=== PATIENT | female | born 1980 | race Caucasian/White ===

== ENCOUNTER 2020-02-01 22:48 | Emergency (ER) | payer MEDICARE, MEDICAID, SELFPAY ==
--- NOTE | ~2020-02-01 | XR_ITS ---
EXAMINATION: XR ankle RT min 3V, XR foot RT min 3V, XR tibia fibula RT 2V DATE: 02/01/2020 23:20 INDICATION: Pain at the right foot and distal right lower leg post fall TECHNIQUE: 1. Anteroposterior and lateral views of the right tibia and fibula were obtained. 2. Anteroposterior, mortise, additional oblique and lateral view of the right ankle were obtained. 3. Dorsoplantar, two oblique and lateral views of the right foot were obtained. COMPARISON: Right ankle radiographs dated 08/30/2017 FINDINGS: Normal alignment at the right knee, ankle and foot. Unchanged corticated heterotopic ossicle at the t ip of the medial malleolus likely sequela of prior deltoid ligament sprain. Right second-fifth claw t oes with partial cross over the second and third toes. There are nondisplaced fractures at the necks of the second, third and fourth metatarsals with mild lateral angulation. No other fractures identifi ed. Joint spaces are relatively preserved throughout. Large right ankle joint effusion with increased density anterior to the tibiotalar joint line. Bone island at the anterior process of the calcaneus. Soft tissue swelling about the lateral malleolus and lateral hindfoot. IMPRESSION: 1. Mild lateral angulation of nondisplaced fractures at the necks of the right second, third and four th metatarsals. 2. Lateral sided soft tissue swelling and large effusion but no fracture at the right ankle. Reviewed, dictated and finalized at location A. IMPRESSION: 1. Mild lateral angulation of nondisplaced fractures at the necks of the right second, third and fourth metatarsals. 2. Lateral sided soft tissue swelling and large effusion but no fracture at the right ankle. IMPRESSION: 1. Mild lateral angulation of nondisplaced fractures at the necks of the right second, third and fourth metatarsals. 2. Lateral sided soft tissue swelling and large effusion but no fracture at the right ankle.
[2020-02-01 22:48] VITALS: BP 114/96; PULSE 75; RESP 20; TEMP 36.9; O2SAT 98
--- NOTE | 2020-02-01 23:21 | ED.LOWEXIN ---
HPI - Extremity Injury (Lower) General Chief Complaint: Extremity Injury, Lower Stated Complaint: FOOT PAIN Time Seen by Provider: 02/01/20 22:52 Source: RN notes reviewed History of Present Illness HPI Narrative: Patient presents emergency department from home for right ankle pain. Patient states prior to arrival she was walking her backyard when she stepped in the mall held in causing her to twist her right ankle and fell to the ground. Patient notes pain in the right lateral ankle going down to the right foot and up the right midline. Patient denies any other trauma or injury from the fall. Denies any numbness or tingling or any other symptoms Related Data Home Medications Medication Instructions Recorded Confirmed citalopram 40 mg PO DAILY 02/01/20 02/01/20 diclofenac sodium 75 mg PO BID 02/01/20 02/01/20 risperidone 0.5 mg PO HS 02/01/20 02/01/20 Allergies Allergy/AdvReac Type Severity Reaction Status Date / Time Sulfa (Sulfonamide Allergy Mild Unknown Verified 02/01/20 22:57 Antibiotics) codeine Allergy Unknown Unknown Verified 02/01/20 22:57 Review of Systems Review of Systems: Narrative: Gen.: Denies fevers or chills Musculoskeletal: See HPI Neuro: Denies numbness, tingling, weakness Skin: Denies rash Endo: Denies DM PMFSH Past Medical History Medical History Degenerative joint disease (DJD) of hip Right hip pain Trochanteric bursitis, right hip Vision abnormalities Social History Social History Smoking status: Current every day smoker Second hand tobacco smoke exposure: No Alcohol intake: current Gender identity (if verbalized by the patient): Female Exam Narrative: Exam Narrative: APPEARANCE: No acute distress, nontoxic, resting in bed Eyes: EOMI HEENT: Normocephalic, atraumatic, RESPIRATORY: No respiratory distress MUSCULOSKELETAl: Tender palpation over the right lateral malleolus with mild swelling no ecchymosis, tender over the base of the fifth metatarsal as well as the dorsal foot and the proximal fibula dorsalis pedis pulse 2+, neurovascular intact, no tenderness over the medial malleolus NEURO: Awake and alert. Following commands, speech normal, no focal deficits SKIN:: Warm, dry. Normal Color no rash or lesions Course Course Emergency Course: Discussed with patient results of workup and diagnosis. Discussed need for follow-up with primary care, proper use of medication, and reasons to return to the emergency department. Patient understands and agrees to current treatment plan Vital Signs Vital signs: Vital Signs Temperature 98.5 F 02/01/20 22:48 Pulse Rate 75 02/01/20 22:48 Respiratory Rate 20 02/01/20 22:48 Blood Pressure 114/96 H 02/01/20 22:48 Pulse Oximetry 98 02/01/20 22:48 Temperature 98.5 F 02/01/20 22:48 Pulse Rate 75 02/01/20 22:48 Respiratory Rate 20 02/01/20 22:48 Blood Pressure 114/96 H 02/01/20 22:48 Pulse Oximetry 98 02/01/20 22:48 Procedures Orthopedic Splinting/Casting Injury #1: Lower Extremity Injury Location: foot Lower Extremity Immobilizer: posterior splint Splint: customized in ED OCL: short leg Pre-Procedure Neuro Vascular Exam: normal Post-Procedure Neuro Vascular Exam: normal MDM - Extremity Injury (Lower) Imaging Data Radiologist's impression: ITS Impressions Ankle X-Ray 02/01/20 23:23 IMPRESSION: 1. Mild lateral angulation of nondisplaced fractures at the necks of the right second, third and fourth metatarsals. 2. Lateral sided soft tissue swelling and large effusion but no fracture at the right ankle. Foot X-Ray 02/01/20 23:23
[2020-02-01] MEDS: ACETAMINOPHEN 500 MG TABLET 1000 MG PO (23:55)
[2020-02-02 00:33] VITALS: BP 135/77; PULSE 70; RESP 16; O2SAT 98
== END 2020-02-02 00:34 | disposition home or self-care (01) ==
PROVIDERS: Emergency Provider Emergency Medicine; PCP Family Medicine
DX: S92.324A Nondisplaced fracture of second metatarsal bone, right foot, initial encounter for closed fracture (principal); S92.334A Nondisplaced fracture of third metatarsal bone, right foot, initial encounter for closed fracture; S92.344A Nondisplaced fracture of fourth metatarsal bone, right foot, initial encounter for closed fracture; M16.10 Unilateral primary osteoarthritis, unspecified hip; F17.200 Nicotine dependence, unspecified, uncomplicated; W18.39XA Other fall on same level, initial encounter
CPT/HCPCS: 29515; 73590; 73610; 73630; 99284; A9270

== ENCOUNTER 2020-02-05 08:21 | Emergency (ER) | payer MEDICARE, MEDICAID, SELFPAY ==
[2020-02-05 08:35] VITALS: BP 121/79; PULSE 78; RESP 12; TEMP 37.1; O2SAT 99
--- NOTE | 2020-02-05 08:35 | ED.LOWEXIN ---
HPI - Extremity Injury (Lower) General Chief Complaint: Extremity Injury, Lower Stated Complaint: bruising to toes Time Seen by Provider: 02/05/20 08:28 History of Present Illness HPI Narrative: She was seen here for right metatarsal fractures on 01/31. She had a splint placed at that time and she has follow-up schudlked tomorrow with ortho. She returns today because she is concerned that her toes are changing colors. No numbness, wound, toe pain. Related Data Home Medications Medication Instructions Recorded Confirmed citalopram 40 mg PO DAILY 02/01/20 02/01/20 diclofenac sodium 75 mg PO BID 02/01/20 02/01/20 risperidone 0.5 mg PO HS 02/01/20 02/01/20 alprazolam 0.5 mg PO DAILY PRN 02/05/20 Allergies Allergy/AdvReac Type Severity Reaction Status Date / Time Sulfa (Sulfonamide Allergy Mild Unknown Verified 02/01/20 22:57 Antibiotics) codeine Allergy Unknown Unknown Verified 02/01/20 22:57 Review of Systems Review of Systems: All systems reviewed & are unremarkable except as noted in HPI and below PMFSH Past Medical History Medical History Degenerative joint disease (DJD) of hip Right hip pain Trochanteric bursitis, right hip Vision abnormalities Family History Family History Mother Hypertension Father Family history of liver disease Other Diabetes mellitus Family history of arthritis Family history of malignant neoplasm Social History Social History Smoking status: Current every day smoker Second hand tobacco smoke exposure: No Alcohol intake: current Gender identity (if verbalized by the patient): Female Exam Const: General: healthy appearing, no acute distress and alert Orientation/consciousness: patient oriented x3 HENMT: Head: normal to inspection Resp: Effort & Inspection: normal respiratory effort Cardio: Other: Brisk capillary refill in all toes on right Skin: Other: Bruising to toes on the right Neuro: Other: Distal motor and sensory intact Course Vital Signs Vital signs: Vital Signs Temperature 37.1 C 02/05/20 08:35 Pulse Rate 78 02/05/20 08:35 Respiratory Rate 12 02/05/20 08:35 Blood Pressure 121/79 02/05/20 08:35 Pulse Oximetry 99 02/05/20 08:35 Temperature 37.1 C 02/05/20 08:35 Pulse Rate 72 02/05/20 09:26 Respiratory Rate 14 02/05/20 09:26 Blood Pressure 121/79 02/05/20 08:35 Pulse Oximetry 99 02/05/20 09:26 Discharge Plan Discharge Clinical Impression: Contusion of foot, right Qualifiers: Encounter type: initial encounter Qualified Code(s): S90.31XA - Contusion of right foot, initial encounter Metatarsal fracture Qualifiers: Encounter type: subsequent encounter Patient Disposition: Home, Self-Care Condition: Stable Instructions: Foot Contusion (ED) Prescriptions: No Action alprazolam 0.5 mg tablet 0.5 mg PO DAILY PRN (Reason: Anxiety) RF: 0 citalopram 40 mg Tablet 40 mg PO DAILY RF: 0 diclofenac sodium 75 mg tablet,delayed release (DR/EC) 75 mg PO BID RF: 0 risperidone 0.5 mg tablet 0.5 mg PO HS RF: 0 hydrocodone-acetaminophen 5-325 mg tablet 1 tablet PO Q4H PRN (Reason: pain) Qty: 8 RF: 0 Follow-up/Referrals: Denis,Coty Brown MD [Primary Care Provider] - Discharge Date/Time: 02/05/20 09:27
[2020-02-05 09:26] VITALS: PULSE 72; RESP 14; O2SAT 99
== END 2020-02-05 09:27 | disposition home or self-care (01) ==
PROVIDERS: Emergency Provider Emergency Medicine; PCP Family Medicine
DX: S90.31XA Contusion of right foot, initial encounter (principal); S92.301A Fracture of unspecified metatarsal bone(s), right foot, initial encounter for closed fracture; M16.10 Unilateral primary osteoarthritis, unspecified hip; X58.XXXA Exposure to other specified factors, initial encounter
CPT/HCPCS: 99282

== ENCOUNTER 2020-07-05 09:00 | Outpatient (RCR) | payer MEDICARE, MEDICAID, SELFPAY ==
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
--- NOTE | 2020-06-04 15:57 | PCPTNOTE ---
Patient called after her appointment time to cancelled scheduled appointment this date due to transportation.
--- NOTE | 2020-06-17 12:49 | PCPTNOTE ---
Patient called & cancelled scheduled appointment this date due to not being able to make it.
--- NOTE | 2020-06-26 12:43 | PCPTNOTE ---
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
[2020-07-01 12:37] VITALS: BP_SYST 180
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
--- NOTE | 2020-07-09 09:01 | PCPTNOTE ---
Patient did not show up for scheduled appointment this date; when called for reminder on next appointment patient answered stating she over slept will be there Wednesday.
--- NOTE | 2020-07-12 13:47 | PCPTNOTE ---
Patient did not show up for scheduled appointment this date. Unable to leave message when she was called due to no VM set-up.
--- NOTE | 2020-07-16 14:40 | PCPTNOTE ---
Patient did not show up for scheduled appointment this date. Called and spoke to patient, she stated she forgot and was very sorry. I explained to her that since this was her 3 no show, we will have to discharge at this time.
--- NOTE | 2020-07-17 11:07 | PCPTNOTE ---
Admitting Provider: Attending Provider: Evan Mora MD Patient:Shayy Wren Date of :1980 Discharge Note Patient has not returned for any further treatments since 07/05/2020, therefore she will be discharged at this time. Patient?s initial visit was on 05/28/2020 14:45 and she had a total of 6 visits with 4 cancelled or no show visits. She has not received therapy since her last therapy update performed. No change in functional status or progress towards goals since 06/04/20. She has been instructed in a HEP to perform to maintain her level of function. The goals have been partially met. Dc skilled therapy services at this time due to poor compliance with attending therapy visits. Thank you for referring this patient to [facility]. Please review, sign, date and return this discharge summary CARYN. I have been updated about the patient's current status and I agree with discharge from the above service at this time. Referring Physician Date
== END 2020-07-18 09:30 | disposition home or self-care (01) ==
LOC: ANHPT 09:00
PROVIDERS: PCP Family Medicine; Referring Provider Orthopaedic Surgery; Visit Provider Orthopaedic Surgery
DX: M75.42 Impingement syndrome of left shoulder (principal)
CPT/HCPCS: 97110; 97140; 97162; 97163

== ENCOUNTER 2021-03-22 10:03 | Emergency (ER) | payer MEDICARE, MEDICAID, SELFPAY | END 2021-03-22 10:15 | disposition left against medical advice (07) | LOC: EXPCOLL 10:08 | PROVIDERS: Emergency Provider Registered Nurse; PCP Family Medicine | DX: Z53.21 Procedure and treatment not carried out due to patient leaving prior to being seen by health care provider (principal) | CPT/HCPCS: 99199 ==

== ENCOUNTER 2021-03-22 10:12 | Emergency (ER) | payer MEDICARE, MEDICAID, SELFPAY ==
--- NOTE | ~2021-03-22 | XR_ITS ---
XR ankle LT min 3V DATE: 03/22/2021 10:31 INDICATION: Pain and swelling of lateral left ankle: Twisting injury last evening. TECHNIQUE: 5 views COMPARISON: None FINDINGS: There is mild lateral soft tissue swelling of the ankle. No fracture or dislocation of the ankle or disruption of the ankle mortise is detected. Mild osteoart hritis of the tibiotalar joint. Slight plantar calcaneal enthesopathy. IMPRESSION: Mild lateral soft tissue swelling; no fracture or dislocation Reviewed, dictated and finalized at location A.
[2021-03-22 10:18] VITALS: BP 134/75; PULSE 71; RESP 20; TEMP 36.8; O2SAT 99
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
== END 2021-03-22 10:53 | disposition home or self-care (01) ==
PROVIDERS: Emergency Provider Registered Nurse; PCP Family Medicine
DX: S93.402A Sprain of unspecified ligament of left ankle, initial encounter (principal); S96.912A Strain of unspecified muscle and tendon at ankle and foot level, left foot, initial encounter; W22.8XXA Striking against or struck by other objects, initial encounter; M16.10 Unilateral primary osteoarthritis, unspecified hip; F17.200 Nicotine dependence, unspecified, uncomplicated
CPT/HCPCS: 73610; 99213; G0463

== ENCOUNTER 2021-04-01 10:14 | Outpatient (CLI) | payer MEDICARE, MEDICAID, SELFPAY ==
--- NOTE | 2021-04-01 12:00 | NEURO_ITS ---
Impression: # Complains of right upper extremity pain. # Subtle evolving right Carpal Tunnel Syndrome. # No ulnar neuropathy. # Normal needle/EMG exam. # Clinical correlation recommended. Nerve Conduction Studies Anti Sensory Summary Table Stim Site NR Peak (ms) P-T Amp (?V) Site1 Site2 Delta-P (ms) Dist (cm) Kade (m/s) Right Median Anti Sensory (2-3nd Digit) Wrist 3.4 34.9 Wrist 2-3nd Digit 3.4 14.0 41 Wrist 3.4 31.5 Wrist 2-3nd Digit 3.4 14.0 41 Right Radial Anti Sensory (Base 1st Digit) Wrist 1.8 19.1 Wrist Base 1st Digit 1.8 0.0 Right Ulnar Anti Sensory (5th Digit) Wrist 2.4 75.8 Wrist 5th Digit 2.4 14.0 58 Motor Summary Table Stim Site NR Onset (ms) O-P Amp (mV) Site1 Site2 Delta-0 (ms) Dist (cm) Kade (m/s) Right Median Motor (Abd Poll Brev) Wrist 3.2 4.4 Elbow Wrist 4.8 28.0 58 Elbow 8.0 2.4 Right Ulnar Motor (Abd Dig Minimi) Wrist 2.6 8.1 A Elbow Wrist 5.0 30.0 60 A Elbow 7.6 6.5 F Wave Studies NR F-Lat (ms) L-R F-Lat (ms) Right Median (Mrkrs) (Abd Poll Brev) 27.10 Right Ulnar (Mrkrs) (Abd Dig Min) 26.33 EMG Side Muscle Nerve Root Ins Act Fibs Amp Dur Recrt Comment Right 1stDorInt Ulnar C8-T1 Nml Nml Nml Nml Nml Right Ext Indicis Radial (Post Int) C7-8 Nml Nml Nml Nml Nml Right Ext Digitorum Radial (Post Int) C7-8 Nml Nml Nml Nml Nml Right BrachioRad Radial C5-6 Nml Nml Nml Nml Nml Right PronatorTeres Median C6-7 Nml Nml Nml Nml Nml Right Abd Poll Brev Median C8-T1 Nml Nml Nml Nml Nml Right Biceps Musculocut C5-6 Nml Nml Nml Nml Nml Right Triceps Radial C6-7-8 Nml Nml Nml Nml Nml Right Deltoid Axillary C5-6 Nml Nml Nml Nml Nml MTDD
== END 2021-04-01 10:15 | disposition home or self-care (01) ==
PROVIDERS: PCP Family Medicine; Visit Provider Family Medicine
DX: G56.01 Carpal tunnel syndrome, right upper limb (principal)
CPT/HCPCS: 95886; 95909

== ENCOUNTER 2021-10-14 10:14 | Outpatient (CLI) | payer MEDICARE, MEDICAID, SELFPAY ==
--- NOTE | ~2021-10-14 | MM_ITS ---
EXAMINATION: MM screening vero BI w [facility] HISTORY: Screening mammogram TECHNIQUE: Craniocaudal and mediolateral oblique 3-D tomosynthesis images were obtained and synthetic 2-D images were generated. CAD analysis was submitted and interpreted. COMPARISON: 11/17/2013 left breast ultrasound, reported negative BREAST PARENCHYMAL COMPOSITION: There are scattered areas of fibroglandular density. FINDINGS: There is mild mammographic asymmetry. There is no evidence of suspicious mass, calcificatio n, or architectural distortion to suggest malignancy in either breast. IMPRESSION: 1. No mammographic evidence of malignancy. 2. Recommend routine screening mammography in one year. BI-RADS Category 2: Benign finding(s). Reviewed, dictated and finalized at location A.
== END 2021-10-14 10:15 | disposition home or self-care (01) ==
PROVIDERS: PCP Family Medicine; Visit Provider Physician Assistant
DX: Z12.31 Encounter for screening mammogram for malignant neoplasm of breast (principal)
CPT/HCPCS: 77063; 77067

== ENCOUNTER 2021-12-01 23:27 | Emergency (ER) | payer MEDICARE, MEDICAID, SELFPAY ==
[2021-12-01 23:33] VITALS: BP 102/78; PULSE 74; RESP 24; TEMP 36.6; O2SAT 99
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
[2021-12-02] MEDS: HYDROcodone/acetaminophen (*CRX) 5-325 MG TABLET 2 TAB PO (00:06)
[2021-12-02] MEDS: NEOMYCIN/POLYMYXIN/BACITRACIN OINTMENT 15 GM TUBE 1 APPLIC TOPICAL (00:28)
[2021-12-02 00:45] VITALS: BP 139/105; PULSE 61; RESP 22; O2SAT 99
== END 2021-12-02 00:46 | disposition home or self-care (01) ==
LOC: ANHED 12-02 00:04
PROVIDERS: Emergency Provider Emergency Medicine
DX: T23.251A Burn of second degree of right palm, initial encounter (principal); T31.0 Burns involving less than 10% of body surface; M16.10 Unilateral primary osteoarthritis, unspecified hip; Z87.820 Personal history of traumatic brain injury; F17.200 Nicotine dependence, unspecified, uncomplicated; X15.0XXA Contact with hot stove (kitchen), initial encounter
CPT/HCPCS: 99283; A9270

== ENCOUNTER 2021-12-21 17:46 | Emergency (ER) | payer MEDICARE, MEDICAID, SELFPAY ==
--- NOTE | ~2021-12-21 | XR_ITS ---
EXAMINATION: XR chest 1V portable 12/21/2021 18:27 INDICATION: Cough and sputum. PROCEDURE: AP portable chest COMPARISON: No prior studies for comparison. FINDINGS: The lungs are clear. The cardiomediastinal silhouette is within normal limits. There are no pleural effusions. There is no pneumothorax suspected. IMPRESSION: 1: NO ACUTE CARDIOPULMONARY DISEASE. Reviewed, dictated and finalized at location A.
[2021-12-21 17:48] VITALS: BP 142/85; PULSE 80; RESP 12; TEMP 37; O2SAT 94
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
[2021-12-21 19:01] LABS: SARS-CoV-2 RNA PCR Negative
[2021-12-21 19:25] VITALS: BP 132/70; PULSE 80; RESP 16; TEMP 36.8; O2SAT 97
== END 2021-12-21 19:27 | disposition home or self-care (01) ==
PROVIDERS: Emergency Provider Nurse Practitioner Family
DX: J00 Acute nasopharyngitis [common cold] (principal); R05.9 Cough, unspecified; Z20.822 Contact with and (suspected) exposure to COVID-19; F17.210 Nicotine dependence, cigarettes, uncomplicated; Z87.820 Personal history of traumatic brain injury; M16.10 Unilateral primary osteoarthritis, unspecified hip
CPT/HCPCS: 71045; 96372; 99283; C9803; J1100; U0003; U0005

== ENCOUNTER 2022-10-20 15:18 | Emergency (ER) | payer MEDICARE, MEDICAID, SELFPAY ==
[2022-10-20 15:20] VITALS: BP 144/82; PULSE 73; RESP 16; TEMP 36.8; O2SAT 98
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
== END 2022-10-20 17:50 | disposition home or self-care (01) ==
LOC: ANHED 17:49
PROVIDERS: Emergency Provider Physician Assistant; PCP Student in an Organized Health Care Education/Training Program
DX: L02.411 Cutaneous abscess of right axilla (principal); L23.1 Allergic contact dermatitis due to adhesives; Z87.820 Personal history of traumatic brain injury; M16.9 Osteoarthritis of hip, unspecified; F17.200 Nicotine dependence, unspecified, uncomplicated
CPT/HCPCS: 99282

== ENCOUNTER 2022-11-17 10:21 | Emergency (ER) | payer OTHER, MEDICARE, MEDICAID, SELFPAY ==
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
[2022-11-17 10:30] VITALS: BP 134/102; PULSE 82; RESP 16; TEMP 36.6; O2SAT 100
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
== END 2022-11-17 11:13 | disposition home or self-care (01) ==
PROVIDERS: Emergency Provider Nurse Practitioner
DX: M54.6 Pain in thoracic spine (principal); F17.200 Nicotine dependence, unspecified, uncomplicated
CPT/HCPCS: 72072; 99213; G0463

== ENCOUNTER 2023-02-14 14:21 | Emergency (ER) | payer MEDICARE, MEDICAID, SELFPAY ==
[2023-02-14 14:45] VITALS: BP 128/84; PULSE 82; RESP 16; TEMP 37.1; O2SAT 97
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
[2023-02-14] MEDS: TETANUS,DIPHTHERIA,AC PERTUSSIS ADULT (0.5 ML) BOOSTRIX IM (18:35)
[2023-02-14] MEDS: AZITHROMYCIN 250 MG TABLET 500 MG PO (18:50)
[2023-02-14] MEDS: CEPHALEXIN 500 MG CAPSULE PO (18:50)
== END 2023-02-14 18:54 | disposition home or self-care (01) ==
PROVIDERS: Emergency Provider Physician Assistant
DX: B35.1 Tinea unguium (principal); L03.031 Cellulitis of right toe; S60.812A Abrasion of left wrist, initial encounter; S60.322A Blister (nonthermal) of left thumb, initial encounter; S60.321A Blister (nonthermal) of right thumb, initial encounter; Z23 Encounter for immunization; W55.03XA Scratched by cat, initial encounter; X58.XXXA Exposure to other specified factors, initial encounter
CPT/HCPCS: 90471; 90715; 99283; A9270

== ENCOUNTER 2023-06-17 20:26 | Emergency (ER) | payer MEDICARE, MEDICAID, SELFPAY ==
--- NOTE | ~2023-06-17 | XR_ITS ---
EXAMINATION: XR forearm RT 2V DATE: 06/17/2023 21:02 INDICATION: Right forearm dog bite. TECHNIQUE: 2 views of right forearm were obtained. COMPARISON: Right forearm radiographs 02/06/2009 FINDINGS: Bone alignment is normal. No fracture. Joint spaces are normal. No elbow joint effusion. No radiopaque foreign body. There is a distal forearm laceration. IMPRESSION: 1. No fracture. Reviewed, dictated and finalized at location E. [employer] IMPRESSION: 1. No fracture.
[2023-06-17 20:29] VITALS: BP 148/80; PULSE 65; RESP 18; TEMP 36.7; O2SAT 96
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
[2023-06-18] MEDS: AMOXICILLIN/CLAVULANATE K 875-125 MG TAB 1 TABLET PO (00:04)
[2023-06-18] MEDS: HYDROcodone/acetaminophen (*CRX) 5-325 MG TABLET 1 TAB PO (00:04)
[2023-06-18 00:10] VITALS: BP 140/86; PULSE 82; RESP 15; TEMP 36.8; O2SAT 100
== END 2023-06-18 00:13 | disposition home or self-care (01) ==
PROVIDERS: Emergency Provider Physician Assistant
DX: S51.851A Open bite of right forearm, initial encounter (principal); M16.9 Osteoarthritis of hip, unspecified; F17.210 Nicotine dependence, cigarettes, uncomplicated; Z87.820 Personal history of traumatic brain injury; W54.0XXA Bitten by dog, initial encounter
CPT/HCPCS: 73090; 99283; A9270

== ENCOUNTER 2023-10-28 16:08 | Emergency (ER) | payer MEDICARE, MEDICAID, SELFPAY ==
--- NOTE | ~2023-10-28 | XR_ITS ---
EXAMINATION: XR knee LT 3V, XR knee RT 3V DATE: 10/28/2023 16:37 INDICATION: Bilateral knee injuries post fall TECHNIQUE: 1. Anteroposterior, oblique and crosstable lateral views of the left knee were obtained. 2. Anteroposterior, oblique and crosstable lateral views of the right knee were obtained. COMPARISON: None. FINDINGS: Normal alignment at both knees. No fractures. Joint spaces appear normal on nonweightbearing imaging. Soft tissues are unremarkable. No joint effusion without layering lipohemarthrosis at either knee. IMPRESSION: 1. Negative bilateral knee radiographs. Reviewed, dictated and finalized at location A. IMPRESSION: 1. Negative bilateral knee radiographs.
[2023-10-28 16:10] VITALS: BP 127/90; PULSE 88; RESP 16; TEMP 36.4; O2SAT 98
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
== END 2023-10-28 17:24 | disposition home or self-care (01) ==
PROVIDERS: Emergency Provider Nurse Practitioner Family; PCP Physician Assistant
DX: S80.02XA Contusion of left knee, initial encounter (principal); S80.01XA Contusion of right knee, initial encounter; Z87.820 Personal history of traumatic brain injury; M16.9 Osteoarthritis of hip, unspecified; F17.200 Nicotine dependence, unspecified, uncomplicated; W18.30XA Fall on same level, unspecified, initial encounter
CPT/HCPCS: 73562; 99283

== ENCOUNTER 2023-11-19 14:11 | Outpatient (CLI) | payer MEDICARE, MEDICAID, SELFPAY ==
--- NOTE | ~2023-11-19 | XR_ITS ---
XR hip RT min 2V DATE: 11/19/2023 14:35 INDICATION: Right hip pain TECHNIQUE: AP and lateral views COMPARISON: None FINDINGS: There are old healed fracture deformities of the right superior and inferior pubic rami. Th ere is some heterotopic ossification at the lateral aspect of the right hip joint. Right hip joint space appears relatively preserved. No recent fracture, dislocation, avascular necros is or bone destruction of the right hip is detected. IMPRESSION: Old healed fractures of the right superior and inferior pubic rami Reviewed, dictated and finalized at location A.
== END 2023-11-19 14:12 ==
PROVIDERS: PCP Physician Assistant; Visit Provider Physician Assistant
DX: M25.551 Pain in right hip (principal)
CPT/HCPCS: 73502

== ENCOUNTER 2024-01-17 06:00 | Emergency (ER) | payer MEDICARE, MEDICAID, SELFPAY ==
[2024-01-17 06:04] VITALS: BP 128/69; PULSE 84; RESP 20; TEMP 36.1; O2SAT 98
[2024-01-17 06:09] VITALS: BP 127/71; PULSE 77; RESP 14; TEMP 36.4; O2SAT 100
[2024-01-17 06:10] VITALS: O2SAT 97
[2024-01-17 06:19] LABS: Basophils Percent Auto 0.5 % (0.2-1.2); Eosinophils Absolute Auto 0.2 K/mm3 (0-0.3); Eosinophils Percent Auto 2.7 % (0-4.4); Hematocrit 41.5 % (37.0-47.0); Hemoglobin 13.9 g/dL (12.0-15.0); Immature Granulocyte Absolute 0.03 K/mm3 (0.00-0.031); Immature Granulocyte Percent A 0.4 % (0-0.5); Lymphocytes Absolute Auto 2.24 K/mm3 (0.9-3.2); Lymphocytes Percent Auto 27.6 % (18.3-44.2); Mean Corpuscular HGB Conc 33.5 g/dl (32-36); Mean Corpuscular Hemoglobin 30.3 pg (26-34); Mean Corpuscular Volume 90.6 fl (80-100); Mean Platelet Volume 9.8 fl (7.4-10.4); Monocytes Absolute Auto 0.5 K/mm3 (0.1-0.6); Monocytes Percent Auto 5.9 % (2.6-8.5); Neutrophils Absolute Auto 5.1 K/mm3 (1.3-6.7); Neutrophils Percent Auto 62.9 % (45.5-73.1); Platelet Count Result 245 k/mm3 (150-375); Red Blood Count 4.58 M/mm3 (4.2-5.4); White Blood Count 8.1 K/mm3 (4.5-10.0)
[2024-01-17 06:29] LABS: Alanine Aminotransferase 30 U/L (6-35); Albumin Level 4.3 g/dL (3.5-5.1); Alkaline Phosphatase 46 U/L (38-126); Anion Gap 10 mmol/L (4-12); Aspartate Amino Transferase 20 U/L (14-36); Bilirubin,Total 0.5 mg/dL (0.2-1.3); Blood Urea Nitrogen 19 mg/dL (7-17); Calcium 8.6 mg/dL (8.4-10.2); Carbon Dioxide 21 mmol/L (22-30); Chloride 107 mmol/L (98-107); Estimated CRCL calculation 143 ml/min; Estimated Glomerular Filt Rate > 60; Glucose 99 mg/dL (65-110); Potassium 3.9 mmol/L (3.4-5.0); Sodium 138 mmol/L (137-145)
[2024-01-17] MEDS: methylPREDNISolone SOD SUCC 125 MG VIAL IV PUSH (06:44)
[2024-01-17] MEDS: FAMOTIDINE 20 MG/2 ML VIAL IV PUSH (06:44)
[2024-01-17] MEDS: diphenhydrAMINE HCl INJ 50 MG/ML VIAL 25 MG IV PUSH (06:44)
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
== END 2024-01-17 07:54 | disposition home or self-care (01) ==
PROVIDERS: Emergency Provider Emergency Medicine; PCP Internal Medicine
DX: L50.9 Urticaria, unspecified (principal); T78.40XA Allergy, unspecified, initial encounter; Z87.820 Personal history of traumatic brain injury
CPT/HCPCS: 36415; 80053; 85025; 96374; 96375; 99284; J1200; J2919

== ENCOUNTER 2024-01-30 07:52 | Emergency (ER) | payer MEDICARE, MEDICAID, SELFPAY ==
[2024-01-30 07:55] VITALS: BP 114/90; PULSE 86; RESP 16; TEMP 36.6; O2SAT 100
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
== END 2024-01-30 08:20 | disposition home or self-care (01) ==
LOC: ANHED 08:06
PROVIDERS: Emergency Provider Emergency Medicine; PCP Internal Medicine
DX: T24.212A Burn of second degree of left thigh, initial encounter (principal); T31.0 Burns involving less than 10% of body surface; M16.9 Osteoarthritis of hip, unspecified; F17.290 Nicotine dependence, other tobacco product, uncomplicated; Z87.820 Personal history of traumatic brain injury; Z79.899 Other long term (current) drug therapy; X12.XXXA Contact with other hot fluids, initial encounter
CPT/HCPCS: 16020; 99282

== ENCOUNTER 2024-03-06 15:17 | Outpatient (CLI) | payer MEDICARE, MEDICAID, SELFPAY ==
--- NOTE | ~2024-03-06 | MM_ITS ---
EXAMINATION: MM screening [facility] BI w [facility] HISTORY: Screening TECHNIQUE: Craniocaudal and mediolateral oblique 3-D tomosynthesis images were obtained and synthetic 2-D images were generated. CAD analysis was submitted and interpreted. COMPARISON: 10/14/2021 BREAST PARENCHYMAL COMPOSITION: Not dense: There are scattered areas of fibroglandular density. FINDINGS: There are developing asymmetries in the upper inner quadrant of the right breast, posterior third and the lower inner quadrant of the left breast, posterior third. IMPRESSION: 1. Developing bilateral breast asymmetries. 2. Additional mammographic views and possible breast ultrasound are recommended. BI-RADS Category 0: Incomplete: Needs additional imaging evaluation. Reviewed, dictated and finalized at location B. IMPRESSION: 1. Developing bilateral breast asymmetries. 2. Additional mammographic views and possible breast ultrasound are recommended . BI-RADS Category 0: Incomplete: Needs additional imaging evaluation.
== END 2024-03-06 15:18 | disposition home or self-care (01) ==
LOC: ANHIMG 15:18
PROVIDERS: PCP Internal Medicine; Visit Provider Internal Medicine
DX: Z12.31 Encounter for screening mammogram for malignant neoplasm of breast (principal); R92.8 Other abnormal and inconclusive findings on diagnostic imaging of breast
CPT/HCPCS: 77063; 77067

== ENCOUNTER 2024-04-04 10:01 | Outpatient (CLI) | payer MEDICARE, MEDICAID, SELFPAY ==
--- NOTE | ~2024-04-04 | MMUS_ITS ---
EXAMINATION: MM diagnostic [facility] BI w [facility], US breast BI complete HISTORY: Follow-up breast asymmetries TECHNIQUE: Additional 3-D tomosynthesis images of the breasts were performed and synthetic 2-D images were generated. CAD analysis was submitted and interpreted. High resolution bilateral complete breas t ultrasound was performed. COMPARISON: Comparison to multiple prior studies sequentially, with oldest reviewed study dated 08/2021. BREAST PARENCHYMAL COMPOSITION: Not dense: There are scattered areas of fibroglandular density. FINDINGS: MAMMOGRAPHIC FINDINGS: The breasts are symmetric. No discrete mass, calcification or architectural distortion. Bilateral rom ast asymmetries are less dense with spot compression views, compatible with superimposed fibroglandul ar tissue. ULTRASOUND: Complete US of all 4 quadrants of the breast/s and retroareolar region was reviewed. Normal heterogen eous echotexture without focal solid or cystic mass. IMPRESSION: 1. No evidence for malignancy in either breast. 2. Routine yearly screening mammogram and regular clinical breast examination are recommended. BI-RADS Category 1: Negative Reviewed, dictated and finalized at location B. IMPRESSION: 1. No evidence for malignancy in either breast. 2. Routine yearly screening mammogram and regular clinical breast examination a re recommended. BI-RADS Category 1: Negative
== END 2024-04-04 10:02 | disposition home or self-care (01) ==
PROVIDERS: PCP Internal Medicine; Visit Provider Internal Medicine
DX: R92.8 Other abnormal and inconclusive findings on diagnostic imaging of breast (principal)
CPT/HCPCS: 76641; 77062; 77066; G0279

== ENCOUNTER 2024-05-25 12:58 | Emergency (ER) | payer MEDICARE, MEDICAID, SELFPAY ==
[2024-05-25 13:08] VITALS: BP 135/85; PULSE 67; RESP 20; TEMP 36.6; O2SAT 97
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
[2024-05-25] MEDS: BUPivacaine HCL 0.25% PF 30 ML VIAL 10 ML INFILTRATE (14:20)
[2024-05-25] MEDS: KETOROLAC 30 MG/ML VIAL (*BKC) IM (14:20)
[2024-05-25 15:12] VITALS: BP 132/80; PULSE 92; RESP 16; TEMP 36.6; O2SAT 100
== END 2024-05-25 15:15 | disposition home or self-care (01) ==
PROVIDERS: Emergency Provider Physician Assistant; PCP Internal Medicine
DX: K02.9 Dental caries, unspecified (principal); M16.9 Osteoarthritis of hip, unspecified; F17.290 Nicotine dependence, other tobacco product, uncomplicated; Z87.820 Personal history of traumatic brain injury; Z79.899 Other long term (current) drug therapy
CPT/HCPCS: 64400; 96372; 99283; J1885

== ENCOUNTER 2024-07-20 16:15 | Outpatient (CLI) | payer MEDICARE, MEDICAID, SELFPAY ==
--- OUTSIDE RECORDS SUMMARY | 2024-07-20 16:18 | XMS_ITS | Clinical Summary ---
Author Organization [facility] [employer] Address [address] [place] [address] Care Team Providers Care Occupancy Specialist Name Role Phone Provider, No Pcp Primary Care Provider Unavailab le Source Comments [facility] [employer],non-owned Affiliates and Associated Physician Practices is amultiple site organization consisting of ambulatory clinics and hospital sitesin [place], [place], [place] and [place]. This disclosure is being madepursuant to the Care Everywhere program and may not contain all information available regarding this patient. Last updated 18.[facility] [employer] Allergies No known active allergies Medications * Be aware that medications may not be up to date on this document. Alwaysverify current medications with the patient. Medication Sig Dispensed Refills Start Date End Date Status diclofenac sodium EC (Voltaren) 75 MG tablet TAKE 1 TABLET BY MOUTH TWICE DAILY WITH FOOD OR MILK 12/14/2023 Active citalopram (CeleXA) 40 MG tablet Take 1 (one) tablet by mouth once daily Active albuterol (Proventil;Ventolin) (5 MG/ML) 0.5% nebulizer solution Inhale 0.5 mL by mouth 4 times daily as needed for Shortness of Breath or Wheezing Active ferrous sulfate 325 (65 FE) MG tablet Take 1 (one) tablet by mouth once daily Active busPIRone (Buspar) 5 MG tablet TAKE 1 TABLET BY MOUTH EVERY MORNING AND 2 TABLETS EVERY NIGHT AT BEDTIME 01/14/2024 Active budesonide-formoterol (Symbicort) 160-4.5 MCG/ACT inhalerIndications:Ch ronic cough,Mucopurulent chronic bronchitis (HCC) Inhale 2 (two) puffs by mouth 2 times daily 10.2 g 11 03/08/2024 Active Active Problems Problem Noted Date Diagnosed Date TBI (traumatic brain injury) 08/19/2011 Encounters Date Type Department Care Team Description 06/12/2024 Telephone [facility] - Pulmonology [address] [place] [phone] Barry Aguilera MD Medication Prior Auth Request 05/30/2024 Refill [facility] - Pulmonology [address] [place] [phone] Barry Aguilera MD MEDICATION REFILL from Last 3 Months Social History Tobacco Use Types Packs/Day Years Used Date Smoking Tobacco: Never Assessed Sex and Gender Information Value Date Recorded Sex Assigned at Not on file Gender Identity Not on file Sexual Orientation Not on file Last Filed Vital Signs Vital Sign Reading Time Taken Comments Blood Pressure 116/80 03/08/2024 2:29 PM CDT Pulse 72 03/08/2024 2:29 PM CDT Temperature 36.6 C (97.8 F) 02/28/2024 8:49 AM CDT Respiratory Rate 17 03/08/2024 2:29 PM CDT Oxygen Saturation 94% 03/08/2024 2:29 PM CDT Inhaled Oxygen Concentration - - Weight 118.8 kg (261 lb 12.8 oz) 03/08/2024 2:29 PM CDT Height 176.5 cm (5' 9.5 ) 03/08/2024 2:29 PM CDT Body Mass Index 38.11 03/08/2024 2:29 PM CDT Plan of Treatment Upcoming Encounters Date Type Department Care Team (Late st Contact Info) Description 07/26/2024 3:00 PM SCALE BALANCER Office Visit [facility] - Pulmonology [address] [place] [phone] Barry Aguilera MD [address] [place] [address] OF PULMONARY MED [address] [place] [phone] Health Maintenance Due Date Last Done Comments LIPID TESTING 1981 MAMMOGRAM 1981 PAP SMEAR 1981 HIV SCREENING 1996 HEPATITIS C SCREENING 03/18/1999 DTAP/TDAP/TD VACCINES (1 - Tdap) 2000 HEPATITIS B VACCINE (1 of 3 - 19+ 3-dose series) 2000 COVID-19 VACCINE (1 - 2023-25 season) 2024 INFLUENZA VACCINE (#1) 2024 DEPRESSION SCREENING 06/14/2024 MEDICARE AWV CALENDAR YEAR 2024 SCREENING FOR DIABETES 02/27/2027 , 08/31/2011, 08/18/2011, Additional history exists ZOSTER VACCINE (1 of 2) 2031 HIB VACCINE Aged Out No longer eligi ble based on patient's age to complete this topic HPV VACCINE Aged Out No longer eligi ble based on patient's age to complete this topic MENINGOCOCCAL (Group B) VACCINE Aged Out No longer eligible based on patient's age to complete this topic MENINGOCOCCAL VACCINE Aged Out No sky rosalina eligible based on patient's age to complete this topic PNEUMOCOCCAL VACCINE Aged Out No long er eligible based on patient's age to complete this topic Procedures Procedure Name Priority Date/Time Associated Diagnosis Comments COMPREHENSIVE METABOLIC PANEL STAT 02/28/2024 9:08 AM CDT from Last 3 Months or Most Recently Relevant to Health Maintenance Results * (ABNORMAL) COMPREHENSIVE METABOLIC PANEL (02/28/2024 9:08 AM CDT) BUN 13 7 - 26 mg/dL 02/28/2024 9:[address] [facility] Creatinine 0.67 0.56 - 0.96 mg/dL 02/28/2024 9:[address] [facility] Sodium 141 136 - 145 mmol/L 02/28/2024 9:[address] [facility] Potassium 3.8 3.5 - 4.5 mmol/L 02/28/2024 9:[address] [facility] Chloride 113(H) 98 - 107 mmol/L 02/28/2024 9:[address] [facility] CO2 25 22 - 29 mmol/L 02/28/2024 9:[address] [facility] Glucose 87 70 - 115 mg/dL 02/28/2024 9:58 AM [facility] Calcium 9.0 8.4 - 10.2 mg/dL 02/28/2024 9:58 AM [facility] Protein Total 7.2 6.0 - 8.3 g/dL 02/28/2024 9:58 AM [facility] Albumin 4.0 3.4 - 5.0 g/dL 02/28/2024 9:58 AM [facility] Bilirubin Total 0.7 0.2 - 1.2 mg/dL 02/28/2024 9:58 AM [facility] Alkaline Phosphatase 53 40 - 150 U/L 02/28/2024 9:58 AM [facility] ALT 10 5 - 55 U/L 02/28/2024 9:58 AM [facility] AST 13 5 - 34 U/L 02/28/2024 9:58 AM [facility] Anion Gap 3(L) 6 - 16 02/28/2024 9:58 AM [facility] BUN/Creatinine Ratio 19 7 - 23 02/28/2024 9:58 AM [facility] Osmolality Calculated 291 275 - 295 mOsm/kg 02/28/2024 9:58 AM [facility] Albumin/Globulin Ratio 1.3 1.1 - 2.3 02/28/2024 9:58 AM [facility] eGFR by CKD-EPI >90 >=90 mL/min/1.7 3 m2 02/28/2024 9:58 AM [facility] Blood BLOOD SPECIMEN / Unknown Venipuncture / Unknown 02/28/2024 9:08 AM [facility] 02/28/2024 9:16 AM [facility] Ace Bae MD LAB - CHEMISTRY GARRETT ARCHULETA [facility] Organization Address City/State/ZIP Co de Phone Number [facility] [address] [place] [address], [place] [phone] from Last 3 Months or Most Recently Relevant to Health Maintenance Advance Directives * FULL RESUSCITATION (Latest Code Status on File) Date Activated Date Inactivated Comments 07/30/2011 10:58 PM 09/08/2011 9:09 PM Care Teams Occupancy Specialist Relationship Specialty Start Date End Date Provider, No Pcp PCP - General 02/28/24
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
--- OUTSIDE RECORDS SUMMARY | 2024-07-20 16:18 | XMS_ITS | Clinical Summary ---
Author Organization [facility] Address [address] [place] [address] Care Team Providers Care Mobile Sales Expert Name Role Phone Unavailable Primary Care Provider Unavailabl e Social History Tobacco Use Types Packs/Day Years Used Date Smoking Tobacco: Never Assessed Comments Unknown Sex and Gender Information Value Date Recorded Sex Assigned at Not on file Legal Sex Female 7:18 PM CDT Gender Identity Not on file Sexual Orientation Not on file Plan of Treatment Health Maintenance Due Date Last Done Comments Cervical Cancer Screening Pa p Smear (Age 30 to 64) Every 3 Years 1981 Annual Physical 1984 Hepatitis C 1999 DTaP, Tdap and Td Vaccines ( 1 - Tdap) 2000 Hepatitis B Vaccines (1 of 3 - 19+ 3-dose series) 2000 Cervical Cancer Screening Pa p with HPV Testing (Age 30 to 64) Every 5 Years 2011 Cervical Cancer Screening with HPV 2011 Mammogram Screening 2021 COVID-19 Vaccine ( - 2023-2 5 season) 2024 Influenza Adult (#1) 2024 HPV Vaccines Aged Out No longer eligi ble based on patient's age to complete this topic Meningococcal B Vaccine Aged Out No l onger eligible based on patient's age to complete this topic Meningococcal Vaccine Aged Out No sky rosalina eligible based on patient's age to complete this topic Pneumococcal Vaccine: Pediat rics (0 to 5 Years) and At-Risk Patients (6 to 64 Years) Aged Out No longer eligible b ased on patient's age to complete this topic RSV Immunizations Under 20 Months Aged Out No longer eligible based on patient's age to complete this topic
--- OUTSIDE RECORDS SUMMARY | 2024-07-20 16:19 | XMS_ITS | Patient Health Summary ---
Author Organization [facility] Address [address] [place] [address] Care Team Providers Care Jailkeeper Name Role Phone Provider, No Pcp Primary Care Provider Unavailab le Note from [facility],non-owned Affiliates and Associated Physician Practices is amultiple site organization consisting of ambulatory clinics and hospital sitesin [place], [place]. This disclosure is being madepursuant to the Care Everywhere program and may not contain all information available regarding this patient. Last updated 18.[facility] Allergies No known active allergies Medications * Be aware that medications may not be up to date on this document. Alwaysverify current medications with the patient. * diclofenac sodium EC (Voltaren) 75 MG tablet(Started 12/14/2023) TAKE 1 TABLET BY MOUTH TWICE DAILY WITH FOOD OR MILK * citalopram (CeleXA) 40 MG tablet Take 1 (one) tablet by mouth once daily * albuterol (Proventil;Ventolin) (5 MG/ML) 0.5% nebulizer solution Inhale 0.5 mL by mouth 4 times daily as needed for Shortness of Breath or Wheezing * ferrous sulfate 325 (65 FE) MG tablet Take 1 (one) tablet by mouth once daily * busPIRone (Buspar) 5 MG tablet(Started 01/14/2024) TAKE 1 TABLET BY MOUTH EVERY MORNING AND 2 TABLETS EVERY NIGHT AT BEDTIME * budesonide-formoterol (Symbicort) 160-4.5 MCG/ACT inhaler(Started 03/08/2024) Inhale 2 (two) puffs by mouth 2 times daily 11 refills by 03/08/2025 Active Problems Problem Noted Date Diagnosed Date TBI (traumatic brain injury) 08/19/2011 Social History Tobacco Use Types Packs/Day Years [...] Mass Index 38.11 03/08/2024 2:29 PM CDT Procedures * COMPLETE PFT W/WO BRONCHODILATOR(Performed 04/17/2024) Performed for Chronic cough, Mucopurulent chronic bronchitis (HCC) * CARDIAC EKG ORDER(Performed 02/29/2024) * TROPONIN-I HIGH SENSITIVE REFLEX 1HOUR(Performed 02/28/2024) * XR CHEST 2VW(Performed 02/28/2024) Performed for Shortness of breath * D-DIMER(Performed 02/28/2024) * B-TYPE NATRIURETIC PEPTIDE(Performed 02/28/2024) * TROPONIN-I HIGH SENSITIVE BASELINE + 1HR(Performed 02/28/2024) * PT-INR [facility](Performed 02/28/2024) * COMPREHENSIVE METABOLIC PANEL(Performed 02/28/2024) * CBC W AUTO DIFFERENTIAL(Performed 02/28/2024) * SARS-COV-2 (COVID-19) RAPID(Performed 02/28/2024) * EKG 12-LEAD(Performed 02/28/2024) Performed for Shortness of breath * CT HIP RIGHT WO CONTRAST(Performed 12/10/2014) * XR PELVIS W RIGHT HIP 2VW(Performed 11/28/2014) * XR PELVIS 1 OR 2VW(Performed 11/28/2014) * XR FOOT RIGHT 3VW OR MORE(Performed 03/03/2012) * XR PELVIS 3VW OR MORE(Performed 02/03/2012) * URINALYSIS REFLEX TO MICROSCOPIC NO CULTURE(Performed 09/08/2011) * IP CONSULT TO HOME HEALTH CARE(Performed 09/07/2011) * CBC W/O DIFFERENTIAL(Performed 08/31/2011) * COMPREHENSIVE METABOLIC PANEL(Performed 08/31/2011) * URINALYSIS REFLEX TO MICROSCOPIC NO CULTURE(Performed 08/23/2011) * CULTURE URINE(Performed 08/23/2011) * PT-INR(Performed 08/20/2011) * CBC W/O DIFFERENTIAL(Performed 08/20/2011) * CT HEAD WO CONTRAST(Performed 08/19/2011) Performed for TBI (traumatic brain injury) (HCC) * CBC W/O DIFFERENTIAL(Performed 08/18/2011) * BASIC METABOLIC PANEL (CALCIUM TOTAL)(Performed 08/18/2011) * URINALYSIS REFLEX TO MICROSCOPIC NO CULTURE(Performed 08/11/2011) * CULTURE URINE(Performed 08/11/2011) * XR PELVIS 1 OR 2VW(Performed 08/08/2011) Performed for Pain * FL SWALLOWING FUNCTION STUDY(Performed 07/31/2011) Performed for Subarachnoid hemorrhage following injury, without mention of open intracranial wound,unspecified state of consciousness ([facility]) * CBC W/O DIFFERENTIAL(Performed 07/30/2011) * BASIC METABOLIC PANEL (CALCIUM TOTAL)(Performed 07/30/2011) * LAB MICROBIOLOGY - HPF HISTORICAL(Performed 07/16/2011) * LAB MICROBIOLOGY - HPF HISTORICAL(Performed 07/15/2011) * LAB MICROBIOLOGY - HPF HISTORICAL(Performed 07/07/2011) * LAB MICROBIOLOGY - HPF HISTORICAL(Performed 07/04/2011) * LAB MICROBIOLOGY - HPF HISTORICAL(Performed 06/23/2011) * LAB MICROBIOLOGY - HPF HISTORICAL(Performed 06/17/2011) Results * COMPLETE PFT W/WO BRONCHODILATOR (04/17/2024 10:25 AM SLITTER CREASER SLOTTER HELPER) Impressions Ankit Foster MD - 04/17/2024 10:25 AM SLITTER CREASER SLOTTER HELPER [facility] DEPARTMENT OF PULMONARY, CRITICAL CARE, AND SLEEP MEDICINE PULMONARY FUNCTION TEST Please see technologist's comments mentioned in the report. INTERPRETATION: SPIROMETRY: FVC: decreased. FEV1: decreased. FEV1/FVC ratio is decreased. BRONCHODILATOR RESPONSE: There is a paradoxical response to bronchodilator therapy, however this does not mean the patient would not benefit from bronchodilator therapy. FLOW-VOLUME LOOPS: Inspection of the flow-volume loops shows small flow-volume loops. LUNG VOLUMES: Lung volumes by body plethysmography show normal total lung volume and increased residual volume. DIFFUSION CAPACITY DLCO: Unadjusted for Hb and COHb is normal. DLCO: Corrected for Hb and COHb not performed. AIRWAY RESISTANCE The airway resistance is normal and the specific conductance is normal. ARTERIAL BLOOD GAS ANALYSIS: Not performed. IMPRESSION: 1. Moderate obstructive ventilatory limitation with air trapping. 2. Uncorrected DLCO is normal. 3. No significant bronchodilator response, however this does not preclude the use of bronchodilators. 4. There is no previous study available for comparison. Shawn Leavitt MD Pulmonary & Critical Care Fellow Division of Pulmonary, Critical Care, and Sleep Medicine [facility] I have reviewed this study and agree with the interpretation by the Boat Rigger. Ankit Foster M.D. Water Purifier Operator of Internal Medicine Division of Pulmonary, Critical Care and Sleep Medicine [facility] Narrative Ankit Foster MD - 04/17/2024 10:25 AM SLITTER CREASER SLOTTER HELPER Shawn English MD 04/18/2024 1:14 PM Rico Baugh MD RESPIRATORY THERAPY ORDERABLES * CARDIAC EKG ORDER (02/29/2024 10:51 AM CDT) Narrative 02/29/2024 10:51 AM CDT Ordered by an unspecified provider. Scanned Document CARDIAC SERVICES ORD ERABLES * TROPONIN-I HIGH SENSITIVE REFLEX 1HOUR (02/28/2024 10:39 AM CDT) Troponin I High Sensitive <3 <=14 ng/L 02/28/2024 11:14 AM CDT [facility] Delta Troponin I HS 02/28/2024 11:14 AM CDT [facility] Comment:Delta value intentio tal not calculated. Baseline to 1 hour specimen collection interval exceeded. Blood BLOOD SPECIMEN / Unknown Venipuncture / Unknown 02/28/2024 10:39 AM CDT 02/28/2024 10:42 AM CDT Ace Bae MD LAB - CHEMISTRY JEREMYTrey PRINGLELUBNA [facility] Organization Address City/State/ZIP Co de Phone Number [id number] [place] [address], [facility] [phone] * XR CHEST 2VW (02/28/2024 9:27 AM CDT) Anatomical Region Laterality Modality Chest Radiographic Neena ging 02/28/2024 9:34 AM CDT Impressions 02/28/2024 10:08 AM CDT IMPRESSION: No acute pulmonary process. Report dictated by Michael Poon MD, PhD (academic vice president). Sarah Farfan MD have personally reviewed and interpreted this examination/study. > Interpreting Provider: Sarah Christina MD on 02/28/2024 10:08 AM Narrative 02/28/2024 10:08 AM CDT PROCEDURE: XR CHEST 2VW, DATE/TIME OF EXAM: 02/28/2024 9:27 AM, LOCATION [facility] INDICATION: R06.02: Shortness of breath ADDITIONAL CLINICAL INFORMATION: Ordering Provider Reason For Exam: Short of breath Technologist Note: Additional: COMPARISON: None. FINDINGS: There is no focal consolidation, pleural effusion, or pneumothorax. The mediastinal and cardiac contours are normal. No acute osseous abnormality is seen. Procedure Note Sarah Christina MD - 02/28/2024 PROCEDURE: XR CHEST 2VW, DATE/TIME OF EXAM: 02/28/2024 9:27 AM, LOCATION [facility] INDICATION: R06.02: Shortness of breath ADDITIONAL CLINICAL INFORMATION: Ordering Provider Reason For Exam: Short of breath Technologist Note: Additional: COMPARISON: None. FINDINGS: There is no focal consolidation, pleural effusion, or pneumothorax. The mediastinal and cardiac contours are normal. No acute osseousabnormality is seen. IMPRESSION: No acute pulmonary process. Report dictated by Michael Poon MD, PhD (academic vice president). Sarah Farfan MD have personally reviewed and interpreted this examination/study. > Interpreting Provider: Sarah Christina MD on 02/28/2024 10:08 AM Ace Bae MD DIAGNOSTIC IMAGING [place] * SARS-COV-2 (COVID-19) RAPID (02/28/2024 9:08 AM CDT) COVID-19 PCR Not detected Not detected 02/28/20 9:51 AM CDT [facility] Microbiology SPECIMEN FROM NASOPHARYNGEAL STRUCTURE / Unknown Collection / Unknown 02/28/2024 9:08 AM CDT 02/28/2024 9:13 AM CDT Narrative [facility] - 02/28/2024 9:51 AM CDT The CepVidaPak Xpert Xpress SARS-COV-2 has been authorized by the Food and Drug Administration (FDA) under an Emergency Use Authorization (EUA). This test has been validated in accordance with the FDA's guidance document Policy for Diagnostic Testing in Laboratories Certified to perform High Complexity Testing under CLIA prior to Emergency Use Authorization for Coronavirus Disease-2019 during the Public Health Emergency issued on August 12, 2019. FDA independent review of this validation is pending. This test is only authorized for the duration of the time the declaration that circumstances exist justifying the authorization of emergency use of in vitro diagnostic tests for detection of SARS-COV-2 virus and/or diagnosis of COVID-19 infection under 564(b) (1) of the Act. 21 U.S.C. 360bbb-3 (b) (1), unless the authorization is terminated or revoked sooner. Fact Sheets for this EUA assay are available upon request. Ace Bae MD LAB - MICROBIOLOGY [place] [facility] [address] [place] [address], [facility] [phone] * PT-INR [facility] (02/28/2024 9:08 AM CDT) PT 14.3 12.1 - 14.8 Seconds 02/28/2024 9:34 AM CDT [facility] INR 1.2 See Comment 02/28/2024 9:34 AM CDT [facility] Comment:The suggested therap eutic range for standard coumadin (warfarin) therapy is an INR of 2.0-3.0. For high-risk patients (Mechanical Mitral Valve Prosthesis, etc.), the suggested prophylactic therapeutic range is an INR of 2.5-3.5. Blood BLOOD SPECIMEN / Unknown Venipuncture / Unknown 02/28/2024 9:08 AM CDT 02/28/2024 9:13 AM CDT Ace Bae MD LAB - COAGULATION OR DERABLES Performing Organization Address [facility]/ZIP Co de Phone Number [address] [address], [facility] [phone] * TROPONIN-I HIGH SENSITIVE BASELINE + 1HR (02/28/2024 9:08 AM CDT) Troponin I High Sensitive <3 <=14 ng/L 02/28/2024 9:58 AM CDT [facility] Blood BLOOD SPECIMEN / Unknown Venipuncture / Unknown 02/28/2024 9:08 AM CDT 02/28/2024 9:16 AM CDT Ace Bae MD LAB - CHEMISTRY ORDE RABLES Performing Organization Address [facility] Co de Phone Number [address] [address], [facility] [phone] * D-DIMER (02/28/2024 9:08 AM CDT) D-Dimer Quantitative 0.32 <=0.50 mcg/mL FEU 02/28/2024 9:36 AM CDT [facility] Comment: In the absence of clinical symptoms, a value less than or equal to 0.5 mcg/mL FEU significantly decreases the probability of PE/DVT (negative predictive value >95%). 1 mcg/mL FEU = 1 Fibrinogen Equivalent Unit (approximates 0.5 mcg/ml of D- Dimer). ISTH DIAGNOSTIC SCORING SYSTEM FOR DIC Score 0 1 2 3 Platelet Count(x10^3/uL) > 100 < 100 < 50 N/A PT Prolongation above upper limit of normal 0-3 3-6 > 6 N/A range (seconds) Fibrinogen (mg/dL) > 100 < 100 N/A N/A D-Dimer (mcg/mL FEU) < 0.50 N/A 0.50-5.0 > 5 Calculate Cumulative Score: > or = 5 :compatible with overt DIC < 5 :suggestive for non-overt DIC N/A = Non applicable Reference: Br. J. Haematol. 145:24-33,2009. Blood BLOOD SPECIMEN / Unknown Venipuncture / Unknown 02/28/2024 9:08 AM CDT 02/28/2024 9:13 AM CDT Ace Bae MD LAB - COAGULATION OR DERABLES [facility] [address] [place] [address], [facility] [phone] * (ABNORMAL) CBC W AUTO DIFFERENTIAL (02/28/2024 9:08 AM CDT) WBC 11.2(H) 4.0 - 10.7 x10E9/L 02/28/2024 9:22 AM [facility] RBC Count 4.27 3.90 - 5.20 x10E12/L 02/28/2024 9:22 AM [facility] Hemoglobin 12.5 11.9 - 15.8 g/dL 02/28/2024 9:22 AM [facility] Hematocrit 37.7 34.8 - 46.1 % 02/28/2024 9:22 AM [facility] MCV 88.3 80.0 - 98.0 fL 02/28/2024 9:22 AM [facility] MCH 29.3 26.7 - 33.6 pg 02/28/2024 9:22 AM [facility] MCHC 33.2 31.7 - 36.3 g/dL 02/28/2024 9:22 AM [facility] RDW-CV 13.0 11.3 - 14.8 % 02/28/2024 9:22 AM [facility] Platelet Count 232 150 - 420 x10E9/L 02/28/2024 9:22 AM [facility] MPV 9.6 7.8 - 11.4 fL 02/28/2024 9:22 AM [facility] Neutrophil % 76.0(H) 41.0 - 74.0 % 02/28/2024 9:22 AM [facility] Lymphocyte % 15.7(L) 17.0 - 47.0 % 02/28/2024 9:22 AM [facility] Monocyte % 5.3 3.0 - 11.0 % 02/28/2024 9:22 AM [facility] Eosinophil % 2.0 0.0 - 7.0 % 02/28/2024 9:22 AM [facility] Basophil % 0.6 0.0 - 1.6 % 02/28/2024 9:22 AM [facility] Immature Granulocytes % 0.4 0.0 - 1.0 % 02/28/2024 9:22 AM [facility] Neutrophil Absolute 8.54(H) 1.60 - 7.50 x10E9/L 02/28/2024 9:22 AM [facility] Lymphocyte Absolute 1.76 1.00 - 4.40 x10E9/L 02/28/2024 9:22 AM [facility] Monocyte Absolute 0.59 0.15 - 1.00 x10E9/L 02/28/2024 9:22 AM [facility] Eosinophil Absolute 0.23 0.00 - 0.60 x10E9/L 02/28/2024 9:22 AM [facility] Basophil Absolute 0.07 0.00 - 0.13 x10E9/L 02/28/2024 9:22 AM [facility] Blood BLOOD SPECIMEN / Unknown Venipuncture / Unknown 02/28/2024 9:08 AM CDT 02/28/2024 9:17 AM [facility] Ace Bae MD LAB - HEMATOLOGY ORD ERABLES [facility] [address] [place] [address], [facility] [phone] * B-TYPE NATRIURETIC PEPTIDE (02/28/2024 9:08 AM T) BNP 71 <100 pg/mL 02/28/2024 9:50 AM [facility] Comment: A decision threshold of 100 pg/mL has been demonstrated to provide the maximal combination of sensitivity, specificity and predictive value for the diagnosis of congestive heart failure (CHF). Virtually all patients with no evidence of CHF have BNP values less than 100 pg/mL. A BNP value greater than 100 pg/mL is consistent with the diagnosis of CHF in the appropriate clinical setting. In a study of 693 patients (male and female) with diagnosed CHF, the following values were determined based on the NYHA functional classification system: NYHA Functional Class Mean Valule (pg/mL) % >100 pg/mL I 320 58.1 II 432 73.0 III 656 79.0 IV 1635 98.3 Blood BLOOD SPECIMEN / Unknown Venipuncture / Unknown 02/28/2024 9:08 AM CDT 02/28/2024 9:16 AM CDT Ace Bae MD LAB - CHEMISTRY GARRETT ARCHULETA [facility] Organization Address City/State/ZIP Co de Phone Number [facility] [address] [place] [address], [facility] [phone] * (ABNORMAL) COMPREHENSIVE METABOLIC PANEL (02/28/2024 9:08 AM [facility]) Only the most recent of2 resultswithin the time period is included. BUN 13 7 - 26 mg/dL 02/28/2024 9:58 AM [facility] Creatinine 0.67 0.56 - 0.96 mg/dL 02/28/2024 9:58 AM [facility] Sodium 141 136 - 145 mmol/L 02/28/2024 9:58 AM [facility] Potassium 3.8 3.5 - 4.5 mmol/L 02/28/2024 9:58 AM [facility] Chloride 113(H) 98 - 107 mmol/L 02/28/2024 9:58 AM [facility] CO2 25 22 - 29 mmol/L 02/28/2024 9:58 AM [facility] Glucose 87 70 - 115 mg/dL 02/28/2024 9:58 AM [facility] Calcium 9.0 8.4 - 10.2 mg/dL 02/28/2024 9:58 AM [facility] Protein Total 7.2 6.0 - 8.3 g/dL 02/28/2024 9:58 AM [facility] Albumin 4.0 3.4 - 5.0 g/dL 02/28/2024 9:58 AM [facility] Bilirubin Total 0.7 0.2 - 1.2 mg/dL 02/28/2024 9:58 AM [facility] Alkaline Phosphatase 53 40 - 150 U/L 02/28/2024 9:58 AM [facility] ALT 10 5 - 55 U/L 02/28/2024 9:58 AM [facility] AST 13 5 - 34 U/L 02/28/2024 9:58 AM [facility] Anion Gap 3(L) 6 - 16 02/28/2024 9:58 AM [facility] BUN/Creatinine Ratio 19 7 - 23 02/28/2024 9:58 AM [facility] Osmolality Calculated 291 275 - 295 mOsm/kg 02/28/2024 9:58 AM [facility] Albumin/Globulin Ratio 1.3 1.1 - 2.3 02/28/2024 9:58 AM [facility] eGFR by CKD-EPI >90 >=90 mL/min/1.7 3 m2 02/28/2024 9:58 AM [facility] Blood BLOOD SPECIMEN / Unknown Venipuncture / Unknown 02/28/2024 9:08 AM CDT 02/28/2024 9:16 AM [facility] Ace Bae MD LAB - CHEMISTRY GARRETT [facility] Organization Address City/State/ZIP Co de Phone Number [facility] [address] [place] [address], [facility] [phone] * EKG 12-LEAD (02/28/2024 8:58 AM CDT) Ventricular Rate 61 BPM [facility] Atrial Rate 61 BPM [facility] P-R Interval 148 ms [facility] QRS Duration ms 86 ms [facility] Q-T Interval ms 414 ms [facility] QTC Calculation (Bezet) 416 ms [facility] Calculated P [place] 70 degrees [facility] Calculated R [place] 83 degrees [facility] Calculated T [place] 49 degrees [facility] Interpretation EKG NORMAL SINUS RHYTHM NORMAL ECG NO PREVIOUS ECGS AVAILABLE Confirmed by ALMA MARMOLEJO MD ([id number]) on 02/29/2024 5:10:48 PM [facility] 02/28/2024 8:58 AM CDT 02/29/2024 5:10 PM CDT Ace Bae MD ECG ORDERABLES [facility] * CT HIP RIGHT WO CONTRAST (12/10/2014 1:55 PM CDT) Anatomical Region Laterality Modality Other Impressions 12/11/2014 7:10 PM CDT Impression: 1. Acetabular over coverage of the femoral head. Increased alpha angle anteriorly and anterosuperiorly. These anatomic features can be seen in the clinical setting of femoroacetabular impingement (combined type). 2. Mild chronic deformity of the right obturator ring consistent with old healed fractures. 3. 2 elongated fragments of heterotopic ossification posterior to the right hip. 4. Mild degenerative change in the right hip, without joint space narrowing. This report was electronically signed by RICARDO SETHI MD on 12/11/2014 7:10 PM . Narrative 12/11/2014 7:[address] right hip without contrast History: 34-year-old female with signs and symptoms of right hip impingement Technique: Noncontrast axial images of the pelvis were obtained, and small field of view reformats on the right hip were obtained. Images were reviewed and post processing was done using [employer] software. Findings: There is no acute fracture or dislocation of either hip. There is deformity of the right obturator ring consistent with old healed fractures of the superior and inferior pubic rami. There is also a bone spur measuring 20 x 9 mm arising from the anterior aspect of the left pubic body (series 2 image 114) which could be posttraumatic or related to adductor tendon enthesopathy. A small bone island is present in the right inferior pubic ramus. There are 2 elongated fragments of heterotopic ossification just posterior to the superior acetabulum, the larger measuring 16 x 2 mm (series 2 image 30), likely reflecting the sequela of old trauma. Right hip joint space is normal. There is a cyst in the acetabular roof. A small bone island is present in the acetabular roof. There is mild degenerative irregularity of the acetabular roof laterally. There is minimal cystic change in the femoral neck anteriorly. There is a 1 mm calcification in the joint space superiorly. Soft tissue windows to the lower pelvis demonstrate an incompletely distended but otherwise unremarkable urinary bladder. The uterus is present and within normal limits in size. The muscles demonstrate normal bulk. The subcutaneous tissues are normal. Measurements of the right hip are as follows: 1. Femoral anteversion measures 5 degrees (normal 8-14 degrees). 2. Acetabular version (normal is 12-20 degrees): At the top of the femoral head = 18 degrees. Above the fovea = 16 degrees. At the fovea = 20 degrees. 3. The neck shaft angle measures 131 degrees (normal 120-140 degrees). 4. The coronal center edge angle measures 44 degrees (normal is 25-39 degrees). 5. The sagittal center edge angle measures 56 degrees. 6. Alpha angle measurements are as follows (normal is less than 55 degrees): At 9:00 (anterior) = 60 degrees At 10:00 (anterior-superior) = 61 degrees At 11:00 (anterior-superior) = 56 degrees At 12:00 (superior) = 44 degrees Procedure Note Ricardo Sethi MD - 09/11/[address] right hip without contrast History: 34-year-old female with signs and symptoms of right hipimpingement Technique: Noncontrast axial images of the pelvis were obtained, and smallfield of view reformats on the right hip were obtained. Images werereviewed and post processing was done using [employer]. Findings: There is no acute fracture or dislocation of either hip. There isdeformity of the right obturator ring consistent with old healed fracturesof the superior and inferior pubic rami. There is also a bone spurmeasuring 20 x 9 mm arising from the anterior aspect of the left pubic body (series 2 image 114) which could beposttraumatic or related to adductor tendon enthesopathy. A small boneisland is present in the right inferior pubic ramus. There are 2 elongatedfragments of heterotopic ossification just posterior to the superior acetabulum, the larger measuring 16 x 2 mm(series 2 image 30), likely reflecting the sequela of old trauma. Righthip joint space is normal. There is a cyst in the acetabular roof. A smallbone island is present in the acetabular roof. There is mild degenerative irregularity of the acetabularroof laterally. There is minimal cystic change in the femoral neckanteriorly. There is a 1 mm calcification in the joint space superiorly. Soft tissue windows to the lower pelvis demonstrate an incompletelydistended but otherwise unremarkable urinary bladder. The uterus ispresent and within normal limits in size. The muscles demonstrate normalbulk. The subcutaneous tissues are normal. Measurements of the right hip are as follows: 1. Femoral anteversion measures 5 degrees (normal 8-14 degrees). 2. Acetabular version (normal is 12-20 degrees): At the top of the femoral head = 18 degrees. Above the fovea = 16 degrees. At the fovea = 20 degrees. 3. The neck shaft angle measures 131 degrees (normal 120-140 degrees). 4. The coronal center edge angle measures 44 degrees (normal is 25-39degrees). 5. The sagittal center edge angle measures 56 degrees. 6. Alpha angle measurements are as follows (normal is less than 55degrees): At 9:00 (anterior) = 60 degrees At 10:00 (anterior-superior) = 61 degrees At 11:00 (anterior-superior) = 56 degrees At 12:00 (superior) = 44 degrees IMPRESSION Impression: 1. Acetabular over coverage of the femoral head. Increased alpha angleanteriorly and anterosuperiorly. These anatomic features can be seen inthe clinical setting of femoroacetabular impingement (combined type). 2. Mild chronic deformity of the right obturator ring consistent with oldhealed fractures. 3. 2 elongated fragments of heterotopic ossification posterior to theright hip. 4. Mild degenerative change in the right hip, without joint spacenarrowing. This report was electronically signed by RICARDO SETHI MD on 12/11/20147:10 PM . Song Doan MD CT ORDERABLES * XR PELVIS W RIGHT HIP 2VW (11/28/2014 12:33 PM CDT) Anatomical Region Laterality Modality Other Impressions 11/28/2014 5:08 PM CDT Impression: 1. Mild right hip osteoarthritis. Likely healed right pubic and sacral ala fractures. 2. Slightly increased heterotopic ossification surrounding the right hip. This report has been dictated by Rene Freed M.D. (Resident). This report was approved by Rene Freed M.D. on 11/28/2014 4:[address] KAREEM Farfan M.D. have personally reviewed and interpreted this examination/study. This report was electronically signed by AKREEM HASKINS M.D. on 11/28/2014 5:08 PM . Narrative 11/28/2014 5:08 PM CDT Exam: 1. Pelvis, AP view 2. Right hip, 2 views Date: 11/28/2014 History: Right hip pain Comparison: 02/03/2012. Findings: Pelvis: Old healed right pubic rami and left pubic body fractures are unchanged. There is a likely healed right sacral ala fracture. There is slightly increased heterotopic ossification surrounding the right hip. There is no acute fracture or dislocation. There is mild right hip osteoarthritis. Right hip: Old healed right pubic rami and left pubic body fractures are unchanged. There is slightly increased heterotopic ossification surrounding the right hip. There is no acute fracture or dislocation. There is mild right hip osteoarthritis. Procedure Note Kareem Haskins MD - 09/11/2017 Exam: 1. Pelvis, AP view 2. Right hip, 2 views Date: 11/28/2014 History: Right hip pain Comparison: 02/03/2012. Findings: Pelvis: Old healed right pubic rami and left pubic body fractures are unchanged.There is a likely healed right sacral ala fracture. There is slightlyincreased heterotopic ossification surrounding the right hip. There is noacute fracture or dislocation. There is mild right hip osteoarthritis. Right hip: Old healed right pubic rami and left pubic body fractures are unchanged.There is slightly increased heterotopic ossification surrounding the righthip. There is no acute fracture or dislocation. There is mild right hiposteoarthritis. IMPRESSION Impression: 1. Mild right hip osteoarthritis. Likely healed right pubic and sacralala fractures. 2. Slightly increased heterotopic ossification surrounding the righthip. This report has been dictated by Rene Freed M.D. (Resident). This report was approved by Rene Freed M.D. on 11/28/2014 4:50 PM. I, Dr. KAREEM HASKINS M.D. have personally reviewed and interpreted thisexamination/study. This report was electronically signed by KAREEM HASKINS M.D. on11/28/2014 5:08 PM . Song Doan MD DIAGNOSTIC IMAGING O RDERABLES * XR PELVIS 1 OR 2VW (11/28/2014 12:33 PM CDT) Only the most recent of2 resultswithin the time period is included. Anatomical Region Laterality Modality Pelvis Other Impressions 11/28/2014 5:08 PM CDT Impression: 1. Mild right hip osteoarthritis. Likely healed right pubic and sacral ala fractures. 2. Slightly increased heterotopic ossification surrounding the right hip. This report has been dictated by Rene Freed M.D. (Resident). This report was approved by Rene Freed M.D. on 11/28/2014 4:50 PM . I, Dr. KAREEM HASKINS M.D. have personally reviewed and interpreted this examination/study. This report was electronically signed by KAREEM HASKINS M.D. on 11/28/2014 5:08 PM . Narrative 11/28/2014 5:08 PM CDT Exam: 1. Pelvis, AP view 2. Right hip, 2 views Date: 11/28/2014 History: Right hip pain Comparison: 02/03/2012. Findings: Pelvis: Old healed right pubic rami and left pubic body fractures are unchanged. There is a likely healed right sacral ala fracture. There is slightly increased heterotopic ossification surrounding the right hip. There is no acute fracture or dislocation. There is mild right hip osteoarthritis. Right hip: Old healed right pubic rami and left pubic body fractures are unchanged. There is slightly increased heterotopic ossification surrounding the right hip. There is no acute fracture or dislocation. There is mild right hip osteoarthritis. Procedure Note Kareem Haskins MD - 09/11/2017 Exam: 1. Pelvis, AP view 2. Right hip, 2 views Date: 11/28/2014 History: Right hip pain Comparison: 02/03/2012. Findings: Pelvis: Old healed right pubic rami and left pubic body fractures are unchanged.There is a likely healed right sacral ala fracture. There is slightlyincreased heterotopic ossification surrounding the right hip. There is noacute fracture or dislocation. There is mild right hip osteoarthritis. Right hip: Old healed right pubic rami and left pubic body fractures are unchanged.There is slightly increased heterotopic ossification surrounding the righthip. There is no acute fracture or dislocation. There is mild right hiposteoarthritis. IMPRESSION Impression: 1. Mild right hip osteoarthritis. Likely healed right pubic and sacralala fractures. 2. Slightly increased heterotopic ossification surrounding the righthip. This report has been dictated by Rene Freed M.D. (Resident). This report was approved by Rene Freed M.D. on 11/28/2014 4:50 PM. IDr. KAREEM M.D. have personally reviewed and interpreted thisexamination/study. This report was electronically signed by KAREEM HASKINS M.D. on11/28/2014 5:08 PM . Song Doan MD DIAGNOSTIC IMAGING O RDERABLES * XR FOOT RIGHT 3VW OR MORE (03/03/2012 2:20 PM CDT) Anatomical Region Laterality Modality Ankle / Foot Other Impressions 03/04/2012 10:18 AM CDT IMPRESSION: Mild hammertoe deformities of the second through fourth digits. Osteopenia, likely related to disuse. Dr. Elmer Farfan, have personally reviewed and interpreted this examination/study. Report dictated by Olvin Torres MD (academic vice president). Narrative 03/04/2012 10:18 AM CDT RIGHT FOOT, 3 VIEWS HISTORY: Right foot hammertoes COMPARISON: None available FINDINGS: There are mild hammertoe deformities of the second through fourth digits. There is no hallux valgus or pes planus deformity. There is diffuse osteopenia which is likely related to disuse. The joint spaces are preserved. There is no focal soft tissue swelling. Procedure Note Alex Payne MD - 09/12/2017 RIGHT FOOT, 3 VIEWS HISTORY: Right foot hammertoes COMPARISON: None available FINDINGS: There are mild hammertoe deformities of the second through fourth digits.There is no hallux valgus or pes planus deformity. There is diffuseosteopenia which is likely related to disuse. The joint spaces arepreserved. There is no focal soft tissue swelling. IMPRESSION IMPRESSION: Mild hammertoe deformities of the second through fourth digits. Osteopenia, likely related to disuse. I, Dr. Payne, have personally reviewed and interpreted thisexamination/study. Report dictated by Olvin Torres MD (radiologyresident). Rico Blount Jr., MD DIAGNOSTIC IMAGING ORDERABLES * XR PELVIS 3VW OR MORE (02/03/2012 10:03 AM CDT) Anatomical Region Laterality Modality Pelvis Other Impressions 02/03/2012 12:06 PM CDT IMPRESSION: Right superior and inferior pubic rami fractures with signs of healing. Left pubic body and right sacral ala fractures, unchanged. Michael Farfan M.D. (Attending Radiologist) have personally reviewed and interpreted this exam. Report dictated by Vida Sauceda M.D. (resident). Narrative 02/03/2012 12:06 PM CDT Exam: Pelvis, 3 views History: Pubic body fracture, pubic rami fracture Findings: The right superior and inferior pubic rami fractures and left pubic body fracture are unchanged in alignment since 10/28/2011. Increased marginal bone production is seen along the right pubic rami. The right sacral ala fracture is unchanged in alignment. Procedure Note Michael Goodrich MD - 09/12/2017 Exam: Pelvis, 3 views History: Pubic body fracture, pubic rami fracture Findings: The right superior and inferior pubic rami fractures and left pubic bodyfracture are unchanged in alignment since 10/28/2011. Increased marginalbone production is seen along the right pubic rami. The right sacral alafracture is unchanged in alignment. IMPRESSION IMPRESSION: Right superior and inferior pubic rami fractures with signs of healing. Left pubic body and right sacral ala fractures, unchanged. Michael Farfan M.D. (Attending Radiologist) have personally reviewed andinterpreted this exam. Report dictated by Vida Sauceda M.D.(resident). Rico Nelson MD DIAGNOSTIC IMAGING O RDERABLES * (ABNORMAL) URINALYSIS ROUTINE AUTO (09/08/2011 5:20 AM CDT) Only the most recent of3 resultswithin the time period is included. Source Clean Catch [facility] Color UA Pale Yellow [facility] Character UA Turbid [facility] Glucose UA NEGATIVE NEGATIVE mg/dl [facility] Bilirubin UA NEGATIVE NEGATIVE [facility] Ketone UA NEGATIVE NEGATIVE mg/dl [facility] Specific [place] UA 1.025 1.003 - 1.030 [facility] Blood UA NEGATIVE NEGATIVE [facility] pH UA 6.0 5.0 - 9.0 [facility] Protein UA NEGATIVE NEGATIVE-TR WIL mg/dl [facility] Urobilinogen UA 0.2 0.2 - 1.0 Malina Units/dl [facility] Nitrite UA NEGATIVE NEGATIVE [facility] Leukocyte UA SMALL(H) NEGATIVE [facility] WBC UA 15-25(H) 0 - 2 HPF [facility] RBC UA 1-3 None Seen HPF [facility] Epithelial Cell UA Greater than 10 None Seen HPF [facility] Bacteria UA Many(H) None Seen [facility] Urine specimen (specimen) URINE SPECIMEN OBTAINED BY CLEAN CATCH PROCEDURE / Unknown 09/08/2011 5:20 AM CDT 09/08/2011 5:25 AM CDT Macario Fulton MD LAB - URINALYSI S ORDERABLES Performing Organization Address City/State/[facility] Co de Phone Number [facility] [address] [place] [address] * IP CONSULT TO HOME CARE (09/07/2011 7:37 PM CDT) Narrative Marsha Mark LPN - 09/07/2011 7:37 PM CDT Marsha Mark LPN 09/07/2011 7:37 PM HOME CARE CONSULT NOTED. [facility] CARE TO FOLLOW [phone] / [phone] FAX . D [employer] VICE PRESIDENT [phone] Procedure Note Marsha Mark LPN - 09/07/2011 7:36 PM CDT HOME CARE CONSULT NOTED. [facility] C[facility] TO FOLLOW [phone] / [phone] FAX . D [employer] VICE PRESIDENT [phone] Macario Fulton MD INPATIENT ANCIL JUVENCIO CONSULT * (ABNORMAL) CBC W/O DIFFERENTIAL (08/31/2011 5:11 AM CDT) Only the most recent of4 resultswithin the time period is included. WBC 5.2 4.0 - 10.0 K/CUMM [facility] RBC 3.93 3.80 - 5.80 M/CUMM [facility] Hemoglobin 11.1(L) 12.0 - 16.0 gm/dL [facility] Hematocrit 33.7(L) 37.0 - 47.0 % [facility] MCV 85.8 80.0 - 100.0 fl [facility] MCH 28.2 26.0 - 34.0 pg [facility] MCHC 32.9 31.0 - 37.0 gm/dL [facility] RDW 13.6 11.5 - 14.5 % [facility] Platelet Count 135(L) 150 - 400 K/CUMM [facility] Blood specimen (specimen) BLOOD SPECIMEN / Unknown 08/31/2011 5:11 AM CDT 08/31/2011 5:43 AM CDT Macario Fulton MD LAB - HEMATOLOG Y ORDERABLES Performing Organization Address City/State/[facility] Co de Phone Number [facility] [address] [place] [address] * CULTURE URINE (08/23/2011 7:15 AM CDT) Only the most recent of2 resultswithin the time period is included. Result [facility] Comment: Final CULTURE <10,000 CFU/mL enteric enrico <10,000 CFU/mL urogenital/skin enrico >10,000 CFU/mL urogenital/skin enrico Urine specimen (specimen) URINE SPECIMEN OBTAINED BY CLEAN CATCH PROCEDURE / Unknown 08/23/2011 7:15 AM CDT 08/23/2011 7:24 AM CDT Narrative Resulting Agency Comment Performed By [facility];[address];[place] [address] Macario Fulton MD LAB - MICROBIOL OGY ORDERABLES Performing Organization Address City/State/[facility] Co de Phone Number [facility] [address] [place] [address] * (ABNORMAL) PT-INR (08/20/2011 2:41 AM SLITTER CREASER SLOTTER HELPER) PT 12.0(H) 9.4 - 11.4 seconds [facility] INR 1.12 SEE BELOW [facility] Comment: Conventional anticoagulation 2.0-3.0 Intensive anticoagulation 2.5-3.5 Blood specimen (specimen) BLOOD SPECIMEN / Unknown 08/20/2011 2:41 AM SLITTER CREASER SLOTTER HELPER 08/20/2011 3:16 AM SLITTER CREASER SLOTTER HELPER Macario Fulton MD LAB - COAGULATI ON ORDERABLES Performing Organization Address [facility] Co de Phone Number [facility] [address] [place] [address] * CT HEAD NON CONTRAST (08/19/2011 3:54 PM SLITTER CREASER SLOTTER HELPER) Anatomical Region Laterality Modality Head Computed Tomogra phy 08/19/2011 4:48 PM SLITTER CREASER SLOTTER HELPER Impressions 08/19/2011 4:48 PM SLITTER CREASER SLOTTER HELPER Grossly unremarkable Narrative 08/19/2011 4:48 PM SLITTER CREASER SLOTTER HELPER CT brain, noncontrast DATE: 08/19/2011 INDICATION: Followup traumatic head injury TECHNIQUE: Multidetector nonenhanced CT through the brain. FINDINGS: There are no previous studies at this facility. Study quality is diminished by head motion artifact. Brain parenchyma has normal density. There is no extra-axial fluid collection, mass effect, midline shift or hydrocephalus. There is no acute or chronic hemorrhage. No CT evidence for acute ischemia is present. The visualized paranasal sinuses and mastoid air-cells are clear. Procedure Note Mina Ortiz MD - 08/19/2011 CT brain, noncontrast DATE: 08/19/2011 INDICATION: Followup traumatic head injury TECHNIQUE: Multidetector nonenhanced CT through the brain. FINDINGS: There are no previous studies at this facility. Study quality is diminished by head motion artifact. Brain parenchyma has normal density. There is no extra-axial fluid collection, mass effect, midline shift or hydrocephalus. There is no acute or chronic hemorrhage. No CT evidence for acute ischemia is present. The visualized paranasal sinuses and mastoid air-cells are clear. IMPRESSION Grossly unremarkable Macario Fulton MD CT ORDERABLES * BASIC METABOLIC PANEL (CALCIUM TOTAL) (08/18/2011 5:57 AM SLITTER CREASER SLOTTER HELPER) Only the most recent of2 resultswithin the time period is included. Sodium 140 136 - 145 mmol/L [facility] Potassium 4.0 3.5 - 5.1 mmol/L [facility] Chloride 104 98 - 107 mmol/L [facility] BUN 10 7 - 21.0 mg/dl [facility] Creatinine 0.60 0.5 - 1.3 mg/dl [facility] Glucose 82 65 - 105 mg/dl [facility] CO2 30 22 - 30 mmol/L [facility] Calcium 8.6 8.5 - 10.1 mg/dl [facility] eGFR by MDRD >60 >60 mL/min/1.7 3m2 [facility] Comment eGFR [facility] Comment: The eGFR does not apply to patients who are younger than 18 or older than 70. Blood specimen (specimen) BLOOD SPECIMEN / Unknown 08/18/2011 5:57 AM SLITTER CREASER SLOTTER HELPER 08/18/2011 6:17 AM SLITTER CREASER SLOTTER HELPER Willam Matrin MD LAB - CHEMISTRY GARRETT ARCHULETA [facility] Organization Address City/State/[facility] Co de Phone Number [facility] [address] [place] [address] * MODIFIED BARIUM SWALLOW W/SPEECH (07/31/2011 11:33 AM SLITTER CREASER SLOTTER HELPER) Anatomical Region Laterality Modality Chest Radio Fluoroscop y 07/31/2011 11:4 3 AM SLITTER CREASER SLOTTER HELPER Impressions 07/31/2011 11:43 AM SLITTER CREASER SLOTTER HELPER No aspiration Narrative 07/31/2011 11:43 AM SLITTER CREASER SLOTTER HELPER Modified barium swallow DATE: 07/31/2011 INDICATION: 787.20, dysphasia. Head injury TECHNIQUE: The exam was performed in conjunction with speech pathology. Barium of varying consistencies was swallowed under realtime fluoroscopy and selected images were saved. Fluoro time was 2 minutes and 31 seconds. The patient's ability to cooperate was somewhat limited. There was no aspiration or penetration with thin liquids but the oral phase of swallowing was delayed. There was one episode of penetration with thin liquids but no aspiration. See speech pathology report for recommendations. Procedure Note Mina Ortiz MD - 07/31/2011 Modified barium swallow DATE: 07/31/2011 INDICATION: 787.20, dysphasia. Head injury TECHNIQUE: The exam was performed in conjunction with speech pathology. Barium of varying consistencies was swallowed under realtime fluoroscopy and selected images were saved. Fluoro time was 2 minutes and 31 seconds. The patient's ability to cooperate was somewhat limited. There was no aspiration or penetration with thin liquids but the oral phase of swallowing was delayed. There was one episode of penetration with thin liquids but no aspiration. See speech pathology report for recommendations. IMPRESSION No aspiration Eliane Damian MD FLUOROSCOPY ORDERABL ES * LAB MICROBIOLOGY - HPF HISTORICAL (07/16/2011 6:48 AM SLITTER CREASER SLOTTER HELPER) Only the most recent of6 resultswithin the time period is included. 07/16/2011 6:48 AM SLITTER CREASER SLOTTER HELPER Narrative [facility] - 07/16/2011 6:48 AM SLITTER CREASER SLOTTER HELPER Brian Flores MD LAB - MICROBIOLOGY O RDERABLES [facility] Care Teams Jailkeeper Relationship Specialty Start Date End Date Provider, No Pcp PCP - General 02/28/24
--- OUTSIDE RECORDS SUMMARY | 2024-07-20 16:19 | XMS_ITS | Referral Summary ---
Author Organization [facility] Address [address] [place] [address] Care Team Providers Care Racing Mechanic Name Role Phone Provider, No Pcp Primary Care Provider Unavailab le Source Comments [facility],non-owned Affiliates and Associated Physician Practices is amultiple site organization consisting of ambulatory clinics and hospital sitesin [place], [place], [place] and [place]. This disclosure is being madepursuant to the Care Everywhere program and may not contain all information available regarding this patient. Last updated 18.[facility] Encounters Date Type Department Care Team Description 06/12/2024 Telephone [facility] - Pulmonology [address] [place] [address] [phone] Barry Aguilera MD Medication Prior Auth Request 05/30/2024 Refill [facility] - Pulmonology [address] [place] [phone] Barry Aguilera MD MEDICATION REFILL from Last 3 Months Allergies No known active allergies Medications * [...] st Contact Info) Description 07/26/2024 3:00 PM DATA CENTER ENGINEER Office Visit [facility] - Pulmonology [address] [place] [address], [facility] [place] [address] Barry Aguilera MD [address] [place] [address] OF PULMONARY MED [address] [place] [phone] Procedures Procedure Name Priority Date/Time Associated Diagnosis Comments COMPREHENSIVE METABOLIC PANEL STAT 02/28/2024 9:08 AM CDT from Last 3 Months or Most Recently Relevant to Health Maintenance Results * (ABNORMAL) COMPREHENSIVE METABOLIC PANEL (02/28/2024 9:08 AM [facility] [place] 2[place] BUN 13 7 - 26 mg/dL 02/28/2024 9:58 AM [facility] Creatinine 0.67 0.56 - 0.96 mg/dL 02/28/2024 9:58 AM [facility] Sodium 141 136 - 145 mmol/L 02/28/2024 9:58 AM [facility] Potassium 3.8 3.5 - 4.5 mmol/L 02/28/2024 9:58 AM [facility] Chloride 113(H) 98 - 107 mmol/L 02/28/2024 9:58 AM [facility] CO2 25 22 - 29 mmol/L 02/28/2024 9:58 AM [facility] Glucose 87 70 - 115 mg/dL 02/28/2024 9:58 AM [facility] Calcium 9.0 8.4 - 10.2 mg/dL 02/28/2024 9:58 AM [facility] Protein Total 7.2 6.0 - 8.3 g/dL 02/28/2024 9:58 AM [facility] Albumin 4.0 3.4 - 5.0 g/dL 02/28/2024 9:58 AM [facility] Bilirubin Total 0.7 0.2 - 1.2 mg/dL 02/28/2024 9:58 AM [facility] Alkaline Phosphatase 53 40 - 150 U/L 02/28/2024 9:58 AM [facility] ALT 10 5 - 55 U/L 02/28/2024 9:58 AM [facility] AST 13 5 - 34 U/L 02/28/2024 9:58 AM [facility] Anion Gap 3(L) 6 - 16 02/28/2024 9:58 AM [facility] BUN/Creatinine Ratio 19 7 - 23 02/28/2024 9:58 AM [facility] Osmolality Calculated 291 275 - 295 mOsm/kg 02/28/2024 9:58 AM CDT [facility] Albumin/Globulin Ratio 1.3 1.1 - 2.3 02/28/2024 9:58 AM [facility] eGFR by CKD-EPI >90 >=90 mL/min/1.7 3 m2 02/28/2024 9:58 AM T [facility] Blood BLOOD SPECIMEN / Unknown Venipuncture / Unknown 02/28/2024 9:08 AM CDT 02/28/2024 9:16 AM CDT Ace Bae MD LAB - CHEMISTRY G[place]RETT [place] [facility] [address] [place] [address], [facility] [phone] from Last 3 Months or Most Recently Relevant to Health Maintenance Advance Directives * FULL RESUSCITATION (Latest Code Status on File) Date Activated Date Inactivated Comments 07/30/2011 10:58 PM 09/08/2011 9:09 PM Care Teams Racing Mechanic Relationship Specialty Start Date End Date Provider, No Pcp PCP - General 02/28/24
[2024-07-20 16:50] LABS: Basophils Absolute Auto 0.1 K/mm3 (0.0-0.1); Basophils Percent Auto 0.5 % (0.2-1.2); Eosinophils Absolute Auto 0.1 K/mm3 (0-0.3); Eosinophils Percent Auto 1.1 % (0-4.4); Hematocrit 39.4 % (37.0-47.0); Immature Granulocyte Absolute 0.03 K/mm3 (0.00-0.031); Immature Granulocyte Percent A 0.3 % (0-0.5); Lymphocytes Absolute Auto 1.71 K/mm3 (0.9-3.2); Lymphocytes Percent Auto 16.3 % (18.3-44.2); Mean Corpuscular Hemoglobin 29.3 pg (26-34); Mean Corpuscular Volume 88.9 fl (80-100); Monocytes Absolute Auto 0.4 K/mm3 (0.1-0.6); Monocytes Percent Auto 3.8 % (2.6-8.5); Neutrophils Absolute Auto 8.2 K/mm3 (1.3-6.7); Platelet Count Result 274 k/mm3 (150-375); Red Blood Count 4.43 M/mm3 (4.2-5.4); Red Cell Distribution Width 13.6 % (11.5-14.5); White Blood Count 10.5 K/mm3 (4.5-10.0)
[2024-07-20 17:05] LABS: Alanine Aminotransferase 18 U/L (6-35); Albumin Level 4.3 g/dL (3.5-5.1); Alkaline Phosphatase 65 U/L (38-126); Anion Gap 8 mmol/L (4-12); Aspartate Amino Transferase 23 U/L (14-36); Bilirubin,Total 0.6 mg/dL (0.2-1.3); Blood Urea Nitrogen 13 mg/dL (7-17); Calcium 9.3 mg/dL (8.4-10.2); Carbon Dioxide 24 mmol/L (22-30); Chloride 106 mmol/L (98-107); Cholesterol 182 mg/dL (0-200); Estimated Glomerular Filt Rate > 60; Glucose 126 mg/dL (65-110); HDL Direct 59 mg/dL; Potassium 3.7 mmol/L (3.4-5.0); Sodium 138 mmol/L (137-145); Triglycerides 87 mg/dL (<150)
[2024-07-20 17:16] LABS: LDL Cholesterol Direct 103 mg/dL
[2024-07-20 17:21] LABS: Beta HCG Quantitative < 2.39 mIU/ML
== END 2024-07-20 16:16 | disposition home or self-care (01) ==
LOC: ANHLAB 16:17
PROVIDERS: PCP Internal Medicine; Visit Provider Internal Medicine
DX: Z13.6 Encounter for screening for cardiovascular disorders (principal)
CPT/HCPCS: 36415; 80053; 80061; 84702; 85025

== ENCOUNTER 2025-04-05 10:56 | Outpatient (CLI) | payer MEDICARE, MEDICAID, SELFPAY ==
--- NOTE | ~2025-04-05 | MM_ITS ---
EXAMINATION: MM screening [facility] HISTORY: Screening TECHNIQUE: Craniocaudal and mediolateral oblique 3-D tomosynthesis images were obtained and synthetic 2-D images were generated. CAD analysis was submitted and interpreted. COMPARISON: Comparison to multiple prior studies sequentially, with oldest reviewed study dated 10/14/2021. BREAST PARENCHYMAL COMPOSITION: Not dense: There are scattered areas of fibroglandular density. FINDINGS: There is no evidence of suspicious mass, calcification, or architectural distortion to suggest malignancy in either breast. There has been no suspicious interval change. IMPRESSION: 1. No mammographic evidence of malignancy. 2. Recommend routine screening mammography in one year. BI-RADS Category 1: Negative Reviewed, dictated and finalized at location O.
--- OUTSIDE RECORDS SUMMARY | 2025-04-05 12:05 | XMS_ITS | Clinical Summary ---
Author Organization [facility] Address [address] [place] [address] Care Team Providers Care Commercial Instructor Supervisor Name Role Phone Provider, No Pcp Primary Care Provider Unavailab le Source Comments [facility],non-owned Affiliates and Associated Physician Practices is amultiple site organization consisting of ambulatory clinics and hospital sitesin [place], [place], [place] and [place]. This disclosure is being madepursuant to the Care Everywhere program and may not contain all information available regarding this patient. Last updated 18.[facility] Allergies No known active allergies Medications * Be aware that medications may not be up to date on this document. Alwaysverify current medications with the patient. diclofenac sodium EC (Voltaren) 75 MG tablet TAKE 1 TABLET BY MOUTH TWICE DAILY WITH FOOD OR MILK 12/14/19 24 Active citalopram (CeleXA) 40 MG tablet Take 1 (one) tablet by mouth once daily Active albuterol (Proventil;Mike tolin) (5 MG/ML) 0.5% nebulizer solution Inhale 0.5 mL by mouth 4 times daily as needed for Shortness of Breath or Wheezing Active ferrous sulfate 325 (65 FE) MG tablet Take 1 (one) tablet by mouth once daily Active busPIRone (Buspar) 5 MG tablet TAKE 1 TABLET BY MOUTH EVERY MORNING AND 2 TABLETS EVERY NIGHT AT BEDTIME 01/14/20 24 Active budesonide-for moterol (Symbicort) 160-4.5 MCG/ACT inhalerIndicat ions:Chronic cough,Mucopuru lent chronic bronchitis (HCC) Inhale 2 (two) puffs by mouth 2 times daily 10.2 g 11 03/08/20 24 Active nicotine (Nicoderm CQ) 14 MG/24HR patchIndicatio ns:Tobacco use disorder Apply 1 (one) patch to skin once daily 30 patch 6 01/25/20 25 Active tiotropium (Spiriva Respimat) 2.5 MCG/ACT inhalerIndicat ions:Dyspnea on exertion INHALE 2 PUFFS BY MOUTH ONCE DAILY 4 g 2 03/21/20 25 Active tiotropium (Spiriva Respimat) 2.5 MCG/ACT inhalerIndicat ions:Dyspnea on exertion Inhale 2 (two) puffs by mouth once daily 2 g 3 10/18/19 25 025 Discontinued Hospital, Clinic, or Other Facility Administered Medication Ordered Dose Route Frequency Start Date End Date Status perflutren lipid microsphere (Definity) injection 0-3 mLIndications:Dyspnea on exertion 0 - 3 mL IV INTRA-PROCEDURE MULTIPLE 07/26/2024 Active 0.9% NaCl injection 0-8 mLIndications:Dyspnea on exertion 0 - 8 mL OTHER INTRA-PROCEDURE MULTIPLE 07/26/2024 Active Active Problems Problem Noted Date Diagnosed Date Moderate persistent asthma without complication 01/24/2025 TBI (traumatic brain injury) 08/19/2011 Resolved Problems Problem Noted Date Diagnosed Date Resolved Date Chronic obstructive pulmonary disease 01/24/2025 01/24/2025 Encounters Date Type Department Care Team Description 03/16/2025 Refill [facility] - Pulmonology [address] [place] [address] Kalia Tang MD Refill Request 02/02/2025 9:54 AM CDT - 02/02/2025 11:59 PM CDT Hospital Encounter [facility] PET [address] [place] [phone] Ella Francisco DO Discharge Disposition: Home or Self Care 02/02/2025 8:49 AM CDT - 02/02/2025 9:53 AM CDT Hospital Encounter [facility] PET [address] [place] [phone] Ella Francisco DO Discharge Disposition: Home or Self Care 02/02/2025 Travel 01/29/2025 Orders Only [facility] - Pulmonology [address] [place] [phone] Ariadna Olson RN 01/29/2025 Orders Only [facility] - Pulmonology [address] [place] [phone] Ariadna Olson RN 01/24/2025 3:30 PM CDT Office Visit [facility] - Pulmonology [address] [place] [phone] Barry Aguilera MD Moderate persistent asthma without complication (HCC) (Primary Dx); Lung nodule; Tobacco use disorder; Chronic cough; Dyspnea on exertion; Abnormal PFT 01/24/2025 Travel 01/09/2025 11:23 AM CDT - 01/09/2025 11:59 PM CDT Hospital Encounter [facility] CAT SCAN [address] [place] [address] Rico Baugh MD Discharge Disposition: Home or Self Care 01/09/2025 Travel from Last 3 Months Social History Tobacco Use Types Packs/Day Years Used Date Smoking Tobacco: Never Assessed Comments Unknown Sex and Gender Information Value Date Recorded Sex Assigned at Not on file Legal Sex Female 1:08 PM LIAISON PLANNER Gender Identity Not on file Sexual Orientation Not on file Last Filed Vital Signs Vital Sign Reading Time Taken Comments Blood Pressure 132/78 01/24/2025 3:13 PM CDT Pulse 80 01/24/2025 3:13 PM CDT Temperature 36.6 C (97.8 F) 02/28/2024 8:49 AM CDT Respiratory Rate 17 01/24/2025 3:13 PM CDT Oxygen Saturation 96% 01/24/2025 3:13 PM CDT Inhaled Oxygen Concentration - - Weight 112 kg (247 lb) 01/24/2025 3:13 PM CDT Height 176.5 cm (5' 9.5) 01/24/2025 3:13 PM CDT Body Mass Index 35.95 01/24/2025 3:13 PM CDT Plan of Treatment Upcoming Encounters Date Type Department Care Team (Late st Contact Info) Description 05/30/2025 1:30 PM LIAISON PLANNER Office Visit [facility] - Pulmonology [address] [place] [address] Barry Aguilera MD [facility] [address] [place] [phone] Health Maintenance Due Date Last Done Comments LIPID TESTING 1981 MAMMOGRAM 1981 HIV SCREENING 1996 HEPATITIS C SCREENING 03/18/1999 DTAP/TDAP/TD VACCINES (1 - Tdap) 2000 HEPATITIS B VACCINE (1 of 3 - 19+ 3-dose series) 2000 PNEUMOCOCCAL VACCINE (1 of 2 - PCV) 2000 PAP SMEAR 2002 HPV VACCINE (1 - 3-dose SCDM series) 2008 DEPRESSION SCREENING 06/14/2024 MEDICARE AWV CALENDAR YEAR 2024 COVID-19 VACCINE (1 - season) 2025 INFLUENZA VACCINE (#1) 2025 SCREENING FOR DIABETES 02/27/2027 4, 08/31/2011, 08/18/2011, Additional history exists ZOSTER VACCINE (1 of 2) 2031 HIB VACCINE Aged Out No longer eligi ble based on patient's age to complete this topic MENINGOCOCCAL (Group B) VACCINE SHARED DECISION-MAKING Aged Out No longer eligible based on patient's age to complete this topic MENINGOCOCCAL GROUPS A/C/Y/W VACCINE Aged Out No longer eligible based on patient's age to complete this topic Procedures Procedure Name Priority Date/Time Associated Diagnosis Comments PET CT SKULL TO MID THIGH Routine 02/02/2025 10:39 AM CDT Lung nodule GLUCOSE SCREEN - POCT (IP) H STAT 02/02/2025 9:[address] CHEST WO CONTRAST Routine 01/09/2025 11:53 AM CDT Lung nodule COMPREHENSIVE METABOLIC PANEL STAT 02/28/2024 9:08 AM CDT from Last 3 Months or Most Recently Relevant to Health Maintenance Results * PET CT Skull To Mid Thigh (02/02/2025 10:39 AM CDT) Anatomical Region Laterality Modality Head, Lower Extremity Positron E mission Tomography (PET) 02/02/2025 10:4 4 AM CDT Impressions 02/02/2025 3:31 PM CDT IMPRESSION: 1.Redemonstration of a solid nodule within the left lower lobe with no significant FDG uptake, more likely benign. Recommend continued followup. 2.No FDG avid mediastinal nodes identified. > Dictated by Sharita Cruz M.D. - Diagnostic Forestry Scientist. > Dictated by Pedro López M.D. - Diagnostic Forestry Scientist > Dictated by Sharita Cruz Dr 02/02/2025 10:44 AM > Dictated by Forestry Scientist I, Colleen Barbosa DO have personally reviewed and interpreted this examination/study. > Interpreting Provider: Colleen Barbosa DO on 02/02/2025 3:31 PM Narrative 02/02/2025 3:31 PM CDT PROCEDURE: PET CT SKULL TO MID THIGH DATE/TIME OF EXAM: 02/02/2025 10:39 AM CLINICAL INFORMATION: None relevant/not provided if blank. Indication: R91.1: Lung nodule Additional History: COMPARISON: CT chest dated 01/09/2025. Referring provider: BARRY AGUILERA HISTORY: History of smoking with left lower lobe solid nodule diagnosed on CT scans (09/2024-12/2024).. Evaluate for initial treatment strategy. TECHNIQUE: 10.2 mCi of F-18 FDG by IV in the right antecubital fossa. PET/CT image acquisition from the base of the skull to upper thighs after approximately 60 minutes [address]injection with a CT being low dose, noncontrast. No separate report for the CT was generated since it was used for attenuation correction and anatomic localization. Blood glucose level of the time of injection was 89 mg/dl. Patient's BMI is 36 kg/m . FINDINGS: For reference, SUV max of liver is 2.8. Head and neck: There is physiological FDG activity throughout the brain parenchyma. No abnormal FDG focus is present. No hypermetabolic or enlarged cervical lymph node is identified. Chest: Redemonstration of a 10 mm solid nodule within the left lower lobe that is not avid. The lungs are clear of focal consolidation. No pleural effusion or focal pleural thickening is identified. There is no evidence of pneumothorax. The heart size is normal. No pericardial effusion is present. No hypermetabolic or enlarged mediastinal, axillary, or supraclavicular lymphadenopathy is seen. Paraseptal bleb in the right upper lobe. Abdomen and pelvis: Within the limitations of a noncontrast examination, the visceral abdominal organs are unremarkable. There is normal FDG activity throughout the small and large bowel. No free air or free fluid is identified within the abdomen. There is no hypermetabolic or enlarged abdominal or pelvic lymphadenopathy. Atherosclerotic calcification of the abdominal aorta and its branches is identified. Musculoskeletal: No suspicious lytic or blastic lesions are identified. No abnormal FDG uptake is seen within the osseous structures. Fatty atrophy of the right gastrocnemius musculature. Chronic deformity of the right inferior pubic rami appear. Procedure Note Colleen Barbosa, DO - 02/02/2025 PROCEDURE: PET CT SKULL TO MID THIGH DATE/TIME OF EXAM: 02/02/2025 10:39 AM CLINICAL INFORMATION: None relevant/not provided if blank. Indication: R91.1: Lung nodule Additional History: COMPARISON: CT chest dated 01/09/2025. Referring provider: BARRY AGUILERA HISTORY: History of smoking with left lower lobe solid nodule diagnosedon CT scans (09/2024-12/2024).. Evaluate for initial treatment strategy. TECHNIQUE: 10.2 mCi of F-18 FDG by IV in the right antecubital fossa. PET/CT image acquisition from the base of the skull to upper thighsafter approximately 60 minutes postinjection with a CT being low dose, noncontrast. No separate report for the CT was generated since it wasused for attenuation correction and anatomic localization. Blood glucoselevel of the time of injection was 89 mg/dl. Patient's BMI is 36 kg/m . FINDINGS: For reference, SUV max of liver is 2.8. Head and neck: There is physiological FDG activity throughout the brain parenchyma. No abnormal FDG focus is present. No hypermetabolic or enlarged cervicallymph node is identified. Chest: Redemonstration of a 10 mm solid nodule within the left lower lobe thatis not avid. The lungs are clear of focal consolidation. No pleural effusion or focal pleural thickening is identified. There is no evidence of pneumothorax. The heart size is normal. No pericardial effusion is present. No hypermetabolic or enlarged mediastinal, axillary, or supraclavicular lymphadenopathy is seen. Paraseptal bleb in the right upper lobe. Abdomen and pelvis: Within the limitations of a noncontrast examination, the visceralabdominal organs are unremarkable. There is normal FDG activity throughout thesmall and large bowel. No free air or free fluid is identified within the abdomen. There is no hypermetabolic or enlarged abdominal or pelvic lymphadenopathy. Atherosclerotic calcification of the abdominal aorta and its branches is identified. Musculoskeletal: No suspicious lytic or blastic lesions are identified. No abnormal FDG uptake is seen within the osseous structures. Fatty atrophy of the right gastrocnemius musculature. Chronic deformityof the right inferior pubic rami appear. IMPRESSION: 1.Redemonstration of a solid nodule within the left lower lobe with no significant FDG uptake, more likely benign. Recommend continuedfollowup. 2.No FDG avid mediastinal nodes identified. > Dictated by Sharita Cruz M.D. - Diagnostic Forestry Scientist. > Dictated by Pedro López M.D. - Diagnostic Forestry Scientist > Dictated by Sharita Cruz Dr 02/02/2025 10:44 AM > Dictated by Forestry Scientist I, Colleen Barbosa DO have personally reviewed and interpreted this examination/study. > Interpreting Provider: Colleen Barbosa DO on 02/02/2025 3:31 PM us Ella Francisco DO NM ORDERABLES Final Result * GLUCOSE SCREEN - POCT (IP) [facility] (02/02/2025 9:19 AM CDT) Glucose WB/POC 89 70 - 99 mg/dL [facility] POCT TESTING Blood BLOOD SPECIMEN / Unknown 02/02/2025 9:19 AM CDT us Ella J Nolan DO LAB - POINT OF CARE ORDERABLES F inal Result [facility] POCT TESTING [address] [place] [address], [facility] [phone] * CT Chest Wo Contrast (01/09/2025 11:53 AM CDT) Anatomical Region Laterality Modality Chest Computed Tomogra phy 01/09/2025 12:4 6 PM CDT Impressions 01/09/2025 10:10 PM CDT Impression: 1.Left lower lobe pulmonary nodule measuring 0.9 cm, unchanged from 10/04/2024. Recommend follow-up CT or PET CT in 3 months. 2.No acute process in the chest is identified > Dictated by Mahdi Hermilo Rodriguez Dr, MD (manager of radiology). > Dictated by Mahdi Hermilo Rodriguez Dr 01/09/2025 12:46 PM > Dictated by Forestry Scientist ITrey. Alix Downey MD have personally reviewed and interpreted this examination/study. > Interpreting Provider: Wilber Downey MD on 01/09/2025 10:10 PM Narrative 01/09/2025 10:10 PM CDT PROCEDURE: CT CHEST WO CONTRAST, DATE/TIME OF EXAM: 01/09/2025 11:53 AM, LOCATION [facility] INDICATION: R91.1: Lung nodule COMPARISON: CT chest from 10/04/2024. TECHNIQUE: CT of the chest was performed without contrast according to standard protocol. Findings: Evaluation of visceral and vascular structures is degraded due to lack of intravenous contrast administration. Lower Neck and Axillae: Normal. Lungs: No pulmonary parenchymal or airway process is present. Left lower nodule measuring 1 cm unchanged in comparison to the previous study No pleural fluid or pneumothorax is present. Heart and Pericardium: The cardiac chambers are normal in size. No pericardial fluid or thickening is present. Mediastinum and Tosha: No enlarged lymph nodes are present. Thoracic Vasculature: No vascular abnormality is present. Bones and Chest Wall: Bone windows demonstrate no suspicious lytic or blastic lesions. The visible osseous structures are intact. Upper Abdomen: The visible portions of the upper abdominal organs are normal. Procedure Note Vesta Downey MD - 01/09/2025 PROCEDURE: CT CHEST WO CONTRAST, DATE/TIME OF EXAM: 01/09/2025 11:53AM, LOCATION [facility] INDICATION: R91.1: Lung nodule COMPARISON: CT chest from 10/04/2024. TECHNIQUE: CT of the chest was performed without contrast according to standard protocol. Findings: Evaluation of visceral and vascular structures is degraded due to lackof intravenous contrast administration. Lower Neck and Axillae: Normal. Lungs: No pulmonary parenchymal or airway process is present. Left lower nodule measuring 1 cm unchanged in comparison to the previous study No pleural fluid or pneumothorax is present. Heart and Pericardium: The cardiac chambers are normal in size. No pericardial fluid orthickening is present. Mediastinum and Tosha: No enlarged lymph nodes are present. Thoracic Vasculature: No vascular abnormality is present. Bones and Chest Wall: Bone windows demonstrate no suspicious lytic or blastic lesions. The visible osseous structures are intact. Upper Abdomen: The visible portions of the upper abdominal organs are normal. Impression: 1.Left lower lobe pulmonary nodule measuring 0.9 cm, unchanged from 10/04/2024. Recommend follow-up CT or PET CT in 3 months. 2.No acute process in the chest is identified > Dictated by Mahdi Hermilo Rodriguez Dr, MD (manager of radiology). > Dictated by Mahdi Hermilo Rodriguez Dr 01/09/2025 12:46 PM > Dictated by Forestry Scientist IWilber MD have personally reviewed and interpreted this examination/study. > Interpreting Provider: Wilber Downey MD on 01/09/2025 10:10 PM Rico Baugh MD CT ORDERABLES Final Result * (ABNORMAL) COMPREHENSIVE METABOLIC PANEL (02/28/2024 9:08 AM CDT) BUN 13 7 - 26 mg/dL 02/28/2024 9:58 AM [facility] Creatinine 0.67 0.56 - 0.96 mg/dL 02/28/2024 9:58 AM [facility] Sodium 141 136 - 145 mmol/L 02/28/2024 9:58 AM [facility] Potassium 3.8 3.5 - 4.5 mmol/L 02/28/2024 9:58 AM [facility] Chloride 113(H) 98 - 107 mmol/L 02/28/2024 9:58 AM [facility] CO2 25 22 - 29 mmol/L 02/28/2024 9:58 AM [facility] Glucose 87 70 - 115 mg/dL 02/28/2024 9:58 AM [facility] Calcium 9.0 8.4 - 10.2 mg/dL 02/28/2024 9:58 AM [facility] Protein Total 7.2 6.0 - 8.3 g/dL 02/28/2024 9:58 AM [facility] Albumin 4.0 3.4 - 5.0 g/dL 02/28/2024 9:58 AM [facility] Bilirubin Total 0.7 0.2 - 1.2 mg/dL 02/28/2024 9:58 AM [facility] Alkaline Phosphatase 53 40 - 150 U/L 02/28/2024 9:58 AM [facility] ALT 10 5 - 55 U/L 02/28/2024 9:58 AM [facility] AST 13 5 - 34 U/L 02/28/2024 9:58 AM [facility] Anion Gap 3(L) 6 - 16 02/28/2024 9:58 AM [facility] BUN/Creatinine Ratio 19 7 - 23 02/28/2024 9:58 AM [facility] Osmolality Calculated 291 275 - 295 mOsm/kg 02/28/2024 9:58 AM [facility] Albumin/Globulin Ratio 1.3 1.1 - 2.3 02/28/2024 9:58 AM [facility] eGFR by CKD-EPI >90 >=90 mL/min/1.7 3 m2 02/28/2024 9:58 AM [facility] Blood BLOOD SPECIMEN / Unknown Venipuncture / Unknown 02/28/2024 9:08 AM CDT 02/28/2024 9:16 AM [facility] us Ace Bae MD LAB - CHEMISTRY ORDERABLES Fi nal Result [facility] [address] [place] [address], [facility] [phone] from Last 3 Months or Most Recently Relevant to Health Maintenance Insurance MEDICAID - [place] [employer] MANAGED MEDICARE [employer] [employer] [place] MED[place] Advance Directives * FULL RESUSCITATION (Latest Code Status on File) Date Activated Date Inactivated Comments 07/30/2011 10:58 PM 09/08/2011 9:09 PM Care Teams Commercial Instructor Supervisor Relationship Specialty Start Date End Date Provider, No Pcp PCP - General 02/28/24
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
== END 2025-04-05 10:57 | disposition home or self-care (01) ==
LOC: ANHFOHIMG 10:59
PROVIDERS: PCP Internal Medicine; Visit Provider Obstetrics & Gynecology
DX: Z12.31 Encounter for screening mammogram for malignant neoplasm of breast (principal)
CPT/HCPCS: 77063; 77067

== ENCOUNTER 2025-04-09 20:49 | Emergency (ER) | payer OTHER, MEDICARE, MEDICAID, SELFPAY ==
--- OUTSIDE RECORDS SUMMARY | 2025-04-09 20:51 | XMS_ITS | Clinical Summary ---
Author Organization [facility] Address [address] [place] [id number] Care Team Providers Care Coil Connector Repairer Name Role Phone Unavailable Primary Care Provider [...] of 3 - 19+ 3-dose series) 2000 HPV Vaccines (1 - 3-dose SCD M series) 2008 Cervical Cancer Screening Pa p with HPV Testing (Age 30 to 64) Every 5 Years 2011 Cervical Cancer Screening with HPV 2011 Mammogram Screening 2021 COVID-19 Vaccine ( - 2024-2 6 season) 2025 Influenza Adult (#1) 2025 Hepatitis A Vaccines Aged Out No long er eligible based on patient's age to complete this topic Meningococcal B Vaccine Aged Out No l onger eligible based on patient's age to complete this topic Meningococcal Vaccine Aged Out No sky rosalina eligible based on patient's age to complete this topic Pneumococcal Vaccine: Pediat rics (0 to 5 Years) and At-Risk Patients (6 to 49 Years) Aged Out No longer eligible b ased on patient's age to complete this topic RSV Immunizations Under 20 Months Aged Out No longer eligible based on patient's age to complete this topic
--- OUTSIDE RECORDS SUMMARY | 2025-04-09 20:51 | XMS_ITS | Clinical Summary ---
Author Organization [facility] Address [address] [place] [address] Care Team Providers Care Thrill Performer Name Role Phone Provider, No Pcp Primary Care Provider Unavailab le Source Comments [facility],non-owned Affiliates and Associated Physician Practices is amultiple site organization consisting of ambulatory clinics and hospital sitesin [place], [place] and [place]. This disclosure is being madepursuant to the Care Everywhere program and may not contain all information available regarding this patient. Last updated 18.[facility] Allergies No known active allergies Medications * [...] Refill [facility] [address] [place] [address] Kalia Tang MD Refill Request 02/02/2025 9:54 AM CDT - 02/02/2025 11:59 PM CDT Hospital Encounter [facility] PET [address] [place] [phone] Ella Francisco DO Discharge Disposition: Home or Self Care 02/02/2025 8:49 AM CDT - 02/02/2025 9:53 AM CDT Hospital Encounter [facility] PET [address] [place] [phone] Ella Francisco DO Discharge Disposition: Home or Self Care 02/02/2025 Travel 01/29/2025 Orders Only [facility] - Pulmonology [address] [place] [phone] Ariadna Olson RN 01/29/[address] [facility] - Pul[facility]ology [address] [place] [phone] Ariadna Olson RN 01/24/2025 3:30 PM CDT Office Visit [facility] Pul[facility]ology [address] [place] [phone] Barry Aguilera MD Moderate persistent asthma without complication (HCC) (Primary Dx); Lung nodule; Tobacco use disorder; Chronic cough; Dyspnea on exertion; Abnormal PFT 01/24/2025 Travel 01/09/2025 11:23 AM CDT - 01/09/2025 11:59 PM CDT Hospital Encounter [facility] CAT SCAN [address] [place] [address] Rico Baugh MD Discharge Disposition: Home or Self Care 01/09/2025 Travel from Last 3 Months Social History Tobacco Use Types Packs/Day Years Used Date Smoking Tobacco: Never Assessed Comments Unknown Sex and Gender Information Value Date Recorded Sex Assigned at Not on file 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 [address] [place] [phone] Health Maintenance Due Date Last Done [...] Dictated by Sharita Cruz M.D. - Diagnostic Supervisor Bindery. > Dictated by Pedro López M.D. - Diagnostic Supervisor Bindery > Dictated by Sharita Cruz Dr 02/02/2025 10:44 AM > Dictated by Supervisor Bindery I, Colleen Barbosa DO have personally reviewed [...] Dictated by Sharita Cruz M.D. - Diagnostic Supervisor Bindery. > Dictated by Pedro López M.D. - Diagnostic Supervisor Bindery > Dictated by Sharita Cruz Dr 02/02/2025 10:44 AM > Dictated by Supervisor Bindery I, Colleen Barbosa DO have personally reviewed and interpreted this examination/study. > Interpreting Provider: Colleen Barbosa DO on 02/02/2025 3:31 PM us Ella Francisco DO NM ORDERABLES Final Result * GLUCOSE SCREEN - POCT (IP) [facility] (02/02/2025 9:19 AM CDT) Glucose WB/POC 89 70 - 99 mg/dL [facility] POCT TESTING Blood BLOOD SPECIMEN / Unknown 02/02/2025 9:19 AM CDT us Ella J Nolan DO LAB - POINT OF CARE ORDERABLES F inal Result [facility] POCT TESTING [address] [place] [address], [facility] [phone] * CT Chest Wo Contrast (01/09/2025 11:53 [...] Dictated by Mahdi Hermilo Rodriguez Dr, MD (president and ceo). > Dictated by Mahdi Hermilo Rodriguez Dr 01/09/2025 12:46 PM > Dictated by Supervisor Bindery ITrey. Alix Downey MD have personally reviewed and interpreted this examination/study. > Interpreting Provider: Wilber Downey MD on 01/09/2025 10:10 PM Narrative 01/09/2025 10:10 PM CDT PROCEDURE: CT CHEST WO CONTRAST, DATE/TIME OF EXAM: 01/09/2025 11:53 AM, LOCATION [facility] INDICATION: R91.1: Lung nodule COMPARISON: CT chest [...] CONTRAST, DATE/TIME OF EXAM: 01/09/2025 11:53AM, LOCATION [facility] INDICATION: R91.1: Lung nodule COMPARISON: CT chest [...] Dictated by Mahdi Hermilo Rodriguez Dr, MD (president and ceo). > Dictated by Mahdi Hermilo Rodriguez Dr 01/09/2025 12:46 PM > Dictated by Supervisor Bindery IWilber MD have personally reviewed and interpreted this examination/study. > Interpreting Provider: Wilber Downey MD on 01/09/2025 10:10 PM Rico Baugh MD CT ORDERABLES Final Result * (ABNORMAL) COMPREHENSIVE METABOLIC PANEL (02/28/2024 9:08 AM CDT) BUN 13 7 - 26 mg/dL 02/28/2024 9:58 AM [facility] Creatinine 0.67 0.56 - 0.96 mg/dL 02/28/2024 9:58 AM [facility] Sodium 141 136 - 145 mmol/L 02/28/2024 9:58 AM [facility] Potassium 3.8 3.5 - 4.5 mmol/L 02/28/2024 9:58 [address] [facility] Chloride 113(H) 98 - 107 mmol/L 02/28/2024 9:58 AM [facility] CO2 25 22 - 29 mmol/L 02/28/2024 9:58 AM [facility] Glucose 87 70 - 115 mg/dL 02/28/2024 9:58 AM [facility] Calcium 9.0 8.4 - 10.2 mg/dL 02/28/2024 9:58 AM [facility] Protein Total 7.2 6.0 - 8.3 g/dL 02/28/2024 9:58 AM [facility] Albumin 4.0 3.4 - 5.0 g/dL 02/28/2024 9:58 AM [facility] Bilirubin Total 0.7 0.2 - 1.2 mg/dL 02/28/2024 9:58 AM [facility] Alkaline Phosphatase 53 40 - 150 U/L 02/28/2024 9:58 AM [facility] ALT 10 5 - 55 U/L 02/28/2024 9:58 AM [facility] AST 13 5 - 34 U/L 02/28/2024 9:58 AM [facility] Anion Gap 3(L) 6 - 16 02/28/2024 9:58 AM [facility] BUN/Creatinine Ratio 19 7 - 23 02/28/2024 9:58 AM [facility] Osmolality Calculated 291 275 - 295 mOsm/kg 02/28/2024 9:58 AM [facility] Albumin/Globulin Ratio 1.3 1.1 - 2.3 02/28/2024 9:58 AM [facility] eGFR by CKD-EPI >90 >=90 mL/min/1.7 3 m2 02/28/2024 9:58 AM [facility] Blood BLOOD SPECIMEN / Unknown Venipuncture / Unknown 02/28/2024 9:08 AM CDT 02/28/2024 9:16 AM [facility] [place] us Ace Bae MD LAB - CHEMISTRY ORDERABLES Fi nal Result [facility] [address] [place] [address], [facility] [phone] from Last 3 Months or Most Recently Relevant to Health Maintenance Insurance [place] [phone] [employer] MANAGED MEDICARE [place] MEDICA[place] Advance Directives * FULL RESUSCITATION (Latest Code Status on File) Date Activated Date Inactivated Comments 07/30/2011 10:58 PM 09/08/2011 9:09 PM Care Teams Thrill Performer Relationship Specialty Start Date End Date Provider, No Pcp PCP - General 02/28/24
--- OUTSIDE RECORDS SUMMARY | 2025-04-09 20:51 | XMS_ITS | Data Portability ---
Author Organization [place] [facility], Main Office Address [address] [place] [address] Assessment Encounter Date Assessment Date Assessment LastModified [...] This note is dictated and transcribed by [employer]. Claim Examiner variances may occur. Despite proofreading, typographical errors may occur. Occasional wrong-word or 'vatjt-u-jtcc' substitutions may have occurred due to the inherent limitations of voice recording. Read the chart carefully and recognize, using context, where substitutions have occurred. Not available 02/06/2025 15:18:49 02/20/2025 02/20/2025 This note is dictated and transcribed by [employer]. Claim Examiner variances may occur. Despite proofreading, typographical errors may occur. Occasional wrong-word or 'acgha-g-ybbq' substitutions may have occurred due to the inherent limitations of voice recording. Read the chart carefully and recognize, using context, where substitutions have occurred. Not available 02/21/2025 13:25:51 03/08/2025 03/08/2025 This note is dictated and transcribed by [employer]. Claim Examiner variances may occur. Despite proofreading, typographical errors may occur. Occasional wrong-word or 'ftkqb-g-ygir' substitutions may have occurred due to the inherent limitations of voice recording. Read the chart carefully and recognize, using context, where substitutions have occurred. Not available 03/12/2025 09:55:19 03/19/2025 03/19/2025 This note is dictated and transcribed by [employer]. Claim Examiner variances may occur. Despite proofreading, typographical errors may occur. Occasional wrong-word or 'kcgpy-s-wbsc' substitutions may have occurred due to the [...] to follow up apt. Thanks 2024 025 [facility], [address], [place], [address], 14:52:20 Medication Orders doxycyclin e hyclate 100 mg capsule 2024 025 [id number], [address], [place], [place], [id number], 05:02:11 Patient TargetsNo targets recorded. Patient InstructionsNo instructions recorded. Reason for Referral None Reported. Problems Name Problem SNOMED Code Status Onset Date Resolution Date Notes Provider Name and Address Organization Details Recorded Time Cellulitis of right foot 6846845488980 9105 Active 2021 Arturo Norris DPM [address], [address], [place], [address] , [employer] 5 12:05:59 Disorder of skin 70043089 Active 2021 Not Available [facility] 12:46:26 Ingrowing nail of toe of right foot 6902828335358 9102 Active 2024 Arturo Norris DPM [address], [address], [place], [address] , [employer] 5 12:05:59 Onychogryp hosis 01385549 Active 2024 Arturo Norris DPM [address], [address], [place], [address] , [employer] 5 12:35:38 Pain in toe 559738786 Active 2024 Arturo Norris DPM [address], [address], [place], [address] , [employer] 5 12:35:52 Hammer toe 083209139 Active 2024 Arturo Norris DPM [address], [address], [place], [address] , [employer] 5 12:36:04 Cigarette smoker 56248367 Active 2024 Arturo Norris DPM [address], [address], [place], [address] , [employer] [facility] [employer] 5 12:36:47 Pain of right hip joint 0688062314486 02 Active 2024 [facility] 14:36:50 Cellulitis of right great toe Active 2024 Arturo Norris DPM [address], [address], [place], [address] , [facility] [employer] [facility] 12:19:33 Problem Notes None recorded. Procedures Surgical History Date Name Laterality Status Provider Name and Address Organization Details Recorded Time 02/07/20 25 Partial Nail Avulsion Chemical Matrixectomy-Righ t completed Arturo Norris DPM [address], [address], [place], [address], [facility] [employer] [facility] [employer] [facility] 02/06/2025 15:18:23 08/09/19 25 Wound Care-Podiatry completed Yu Riggs RN [facility] [employer] [facility] 08/09/2024 12:57:31 08/02/19 25 Toenail avulsion completed Arturo Norris DPM [address], [address], [place], [address], [facility] [employer] [facility] [employer] [facility] 08/02/2024 15:02:42 07/10/19 25 Nail Debridement completed Arturo Norris DPM [address], [address], [place], [address], [facility] [employer] [facility] [employer] [facility] 07/10/2024 13:26:00 tonsillectomy completed Erica Arreola CNA [employer] [facility] [employer] 10/18/2024 14:34:59 Imaging Results None recorded. Procedure Notes None recorded. Medical Equipment None Reported. Allergies Allergen ID Allergen Name Allergen Category Reaction Reaction Severity Criticality Documentation Date Start Date Code Code System Note Provider Name and Address Organization Details Recorded Time 42009 Substance with sulfonami de structure and antibacte rial mechanism of action (substanc e) medicatio n itching rash Not available Not available Not available 10/18/2024 96058 8003 SNOMED ANGLE Prasad, [facility] 14:31:32 Medications Name Sig Start Date Stop [...] Updated DateTime 12/20/2024 175.26 cm Deena Harley [facility] [employer] [facility] 12/20/2024 15:05:23 Date Recorded Heart rate Body temperature Oxygen saturation Oxygen saturation in Arterial blood by Pulse oximetry Systolic And Diastolic Provider Name and Address Organization Details Last Updated DateTime 79 /min 97.9 [degF] 97 % 97 % 121/80 mm[Hg] Ovidio Daniels Ana M [facility] [employer] [facility] 14:00:01 Date Recorded Body height Body mass index (BMI) Body weight Provider Name and Address Organization Details Last Updated DateTime 02/06/2025 175.26 cm 36.5 kg/m2 268286.32 g Desire Solares [facility] [employer] [facility] 02/06/2025 13:57:53 Date Recorded Body height Body mass index (BMI) Body weight Heart rate Respiratory rate Oxygen saturation Oxygen saturation in Arterial blood by Pulse oximetry Systolic And Diastolic Provider Name and Address Organization Details Last Updated DateTime 175.26 cm 36.5 kg/m2 561992. 32 g 77 /min 14 /min 99 % 99 % 114/73 mm[Hg] Desire Solares [facility] [employer] [facility] 14:05:02 Date Recorded Body height Body mass index (BMI) Body weight Oxygen saturation Oxygen saturation in Arterial blood by Pulse oximetry Body temperature Heart rate Systolic And Diastolic Provider Name and Address Organization Details Last Updated DateTime 175.26 cm 36.5 kg/m2 372270. 32 g 97 % 97 % 98.2 [degF] 74 /min 129/95 mm[Hg] Ovidio Daniels Ana M [facility] [employer] [facility] 5 11:49:50 Date Recorded Body height Body mass index (BMI) Body weight Oxygen saturation Oxygen saturation in Arterial blood by Pulse oximetry Body temperature Heart rate Systolic And Diastolic Provider Name and Address Organization Details Last Updated DateTime 175.26 cm 36.5 kg/m2 536044. 32 g 98 % 98 % 98.6 [degF] 64 /min 123/83 mm[Hg] Ovidio Daniels Ana M [facility] [employer] [facility] 5 12:01:30 Social History Question Answer Notes LastModified by Organizat ion Details LastModified Time Tobacco Smoking Status Current Every Day Smoker Erica Arreola CNA null, [place] [facility] 10/18/2024 14:34:46 What Was The Date Of Your Most Recent Tobacco Screening? 03/19/2025 [email or web address] Information not available 03/19/2025 How Much Tobacco [...] HISTORY OF DRUG ABUSE N INSOMNIA N RADIATION / CHEMOTHERAPY N COPD Y RHEUMATOID ARTHRITIS N HIGH CHOLESTEROL / HYPERLIPIDEMIA N EDEMA N CAROTID BLOCKAGE N SHINGLES N BACK / NECK PROBLEMS N DEPRESSION (INCLUDING POST ) N BOWEL PROBLEMS N HAVE YOU BEEN HOSPITALIZED OR SEEN IN [facility] IN THE PAST YEAR ? N [...] Blood Disorder N DIZZINESS N NEUROPATHY N AIDS/HIV N KIDNEY DISEASE N HEART DISEASE/HEART PROBLEMS N LIVER DISEASE N MENTAL DISORDER/ILLNESS N HYPERTENSION N CARDIAC ARRHYTHMIA N CANCER: SPECIFY N TOURETTE'S N ANXIETY DISORDER N ANEMIA/BLOOD DISORDER N ANESTHESIA COMPLICATIONS N BIPOLAR DISORDER N AUTOIMMUNE DISEASE N OSTEOARTHRITIS N TUBERCULOSIS N FOOT PROBLEM N Gynecological HistoryNo gynecological history recorded. Obstetrics History GPAL:G 0 P 0 0 0 0 Past Encounters Encounter ID Performer Location Encounter Start Date Encounter Closed Date Diagnosis/Indication Diagnosis SNOMED-CT Code Diagnosis ICD10 Code Diagnosis IMO Codes Diagnosis Note [id number] [facility] [place] [address] [place] [address] 02/26/2022 00:00:00 03/01/2022 12:19:11 [id number] Arturo Norris DPM [facility] [place] [address] [place] [address] 07/10/2024 12:01:00 07/12/2024 16:30:14 Pain in toe 312066580 M79.676 secondary to toenails Ingrowing nail of toe of right foot 5122964846 6280439 L60.0 right great toeboth corners debrided without incidentwi ll monitor if continues to be problemati c will require partial matrixecto my of the right great toenail Onychogryphosis 52650660 L60.2 left 2nd toeplan- scheduled total nail avulsion left 2nd toenail Hammer toe 929637038 M20 .41 discussed optionscon servative therapy at this timerecomm end wide supportive shoe gearoffloa ding to prevent woundswill monitor Cigarette smoker 8061200 7 F17.210 approximat e half pack smoker daily [id number] MAX[facility] [address] [place] [address] 08/02/2024 14:40:15 08/02/2024 16:29:30 Onychogryphosis 36825952 L60.2 left 2nd toeplan- scheduled total nail avulsion left 2nd toenailNai l procedure performed thatwound care reviewed with the patientmon itor for signs of infection at present seek medical attention immediatel yFollow-up in 1 week [id number] Arturo Norris DPM [facility] [address] [place] [address] 08/09/2024 12:14:09 08/09/2024 14:03:50 Onychogryphosis 51976303 L60.2 left 2nd toepreviou s-total nail avulsion left 2nd toenail, 95% healedcont inue wound care until healedoffl oading until healedmoni tor for signs of infection at present seek medical attention immediatel yRx ketoconazo leFollow-u p in 3 months [id number] Ankit Jerez MD [facility] [place] [address] [place] [address] 10/18/2024 13:56:02 10/18/2024 15:17:15 Pain of right hip joint 8026298217 59046 M25.551 41107087 [id number] Arturo Norris DPM [facility] [place] [address] [place] [address] 11/02/2024 11:40:01 11/03/2024 11:37:32 Onychogryphosis 62096682 L60.2 left 2nd toenormal post nail avulsional low the nail to continued regrowthFo llow-up as needed Ingrowing nail of toe of right foot 9000334661 0811914 L60.0 right great toeboth corners debrided without incidentdi scuss treatment options in detailsche dule--- partial matrixecto my of the right great toenail [id number] Ankit Jerez MD [facility] [place] [address] [place] [address] 12/20/2024 15:02:56 12/20/2024 15:16:38 Pain of right hip joint 2267813091 86644 M25.551 03274613 [id number] Arturo Norris DPM [facility] [place] [address] [facility] [address] [place] [address] 02/06/2025 13:49:37 02/08/2025 11:57:17 Ingrowing nail of toe of right foot 1540928420 4067972 L60.0 right great toepartial matrixecto my performedw ound care reviewedDr essing instructio ns reviewedMo nitor for signs of infection present seek medical attention immediatel yFollow-up in 2 weeks [id number] Arturo Norris DPM [facility] [place] [address] [facility] [address] [place] [address] 02/20/2025 14:01:04 02/22/2025 14:59:46 Ingrowing nail of toe of right foot 2731687830 5748999 L60.0 right great toepartial matrixecto my Healedwoun d care reviewed- discontinu e-Dressing Monitor for signs of infection present seek medical attention immediatel yFollow-up as needed [id number] Arturo Norris DPM [facility] [place] [address] [place] [address] 03/08/2025 11:41:34 03/13/2025 15:28:02 Cellulitis of right great toe 5835180545 7108 L03.031 413821 lateral cornernail debridedco ntinue topical antibiotic Rx doxycyclin eFollow-up on week [id number] Arturo Norris DPM [facility] [place] [address] [place] [address] 03/19/2025 11:38:08 03/20/2025 15:06:06 Cellulitis of right foot 6180717454 1665960 L03.115 resolved Ingrowing nail of toe of right foot 0346232572 5081110 L60.0 right great toepartial matrixecto my Healedreso lved Health Concerns Section Related Observation LastModified by Organization Detai ls LastModified Time None Recorded Concern Status LastModified by Organization Details LastModified Time None Recorded Advance Directives Directive None Recorded Payers Insurance Date Sequence Insurance Name Policy Number Policy Espinosa Covered Member ID Espinosa Member ID Guarantor Name 03/19/[address] [facility] (MEDICARE REPLACEMENT/A DVANTAGE - PPO) [id number] Shayy Wren [id number] Shayy Wren 02/06/2025 2 [facility] PRIOR TO 01/12/2025 (MEDICAID REPLACEMENT - HMO) [id number] Shayy Wren [id number] Shayy Wren 03/20/2025 1 [facility] - DOS ON OR AFTER 2025 (MEDICAID REPLACEMENT - HMO) Shayy Wren [id number] Shayy Wren 03/19/2025 2 [employer] (MEDICARE REPLACEMENT/A DVANTAGE - PPO) [id number] Shayy Wren [id number] Shayy Wren Notes Date Note Type Note [...] any other complaints. Arturo Norris DPM [address] [facility] [address], [place], [address], [employer] 02/08/2025 10:43:47 02/20/2025 text/html . Patient is a 44-year-old female who returns the office for follow-up on ingrown toenail of the right great toe which she underwent partial matrixectomy she is doing well she has no acute signs of infection her toe is healed. Patient denies any pain or issues. Patient denies any other complaints. Arturo Norris DPM [address] [facility], [address] [address], [place], [address], [employer] 02/21/2025 13:26:27 03/08/2025 text/html . Patient is a 44-year-old female she presents to the office with complaints of an ingrown toenail to the right great toe. Patient states there has been some redness and pain. Patient denies any fever, chills, nausea or vomiting. Patient has had some mild discomfort with pressure and weight-bearing. Patient denies any other complaints. Arturo Norris DPM [address] [facility], [address] [address], [place], [address], [employer] 03/12/2025 09:55:41 03/19/2025 text/html . Patient is a 44-year-old female who returns the office for follow-up on cellulitis of the right great toenail she has been on oral antibiotics the infection is completely resolved she denies any further pain or open wounds. Patient has no drainage the area. Patient denies any other complaints. Arturo Norris DPM [address] [address], [place], [address], [place] [facility] [place] [employer] [facility] 03/19/2025 12:06:12 OBGyn Episode No OBEpisode recorded.
[2025-04-09 20:52] VITALS: BP 142/86; PULSE 75; RESP 18; TEMP 36.4; O2SAT 100
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
--- OUTSIDE RECORDS SUMMARY | 2025-04-09 21:23 | XMS_ITS | Clinical Summary ---
Author Organization [facility] Address [address] [place] [address] Care Team Providers Care Cardiac Rehabilitation Specialist Name Role Phone Unavailable Primary Care Provider [...]
--- OUTSIDE RECORDS SUMMARY | 2025-04-09 21:23 | XMS_ITS | Patient Health Record ---
Author Organization [facility] Address [address] [place], [place] [id number] Care Team Providers Care Car Repair Supervisor Name Role Phone Coty Barnes Unavailable Unavailable Allergies Allergen (clinical drug ingredient) Drug/Non Drug Allergy documented on EMR Reaction Allergy Type Onset Date Status Latex Latex Unknown Allergy Active Substance with sulfonamide structure and antibacterial mechanism of action (substance) Sulfa Antibiotics Unknown Drug Allergy Active Reason For Referral No Information Medications Medication SIG (Take, Route, Frequency, Duration) Notes Start Date End Date Status Azithromycin 250 MG Tablet Oral; Duration: 5 Days Active Ciclopirox 0.77 % Gel External; Duration : 90 Days Active Cephalexin 500 MG Capsule Oral; Duration: 5 Days Active busPIRone HCl 5 MG Tablet TAKE 1 TABLET BY MOUTH EVERY MORNING AND 2 TABLETS BY MOUTH EVERY NIGHT AT BEDTIME Oral; Duration: 30 Days Active Diclofenac Sodium 75 MG Tablet Delayed Release Oral; Duration: 90 Days Active Plan Of Treatment No Information Insurance Providers Payer Name Payer Address Payer Phone Subscriber Number Group Number Insured Name Patient Relationship to Insured Coverage Start Date Coverage End Date [facility] [address] [address] [place] [address] [id number] Shayy Wren Self - patient is the insured Medical (General) History Medical History History ICD Code Psychiatric Disorder bipolar disorder
--- OUTSIDE RECORDS SUMMARY | 2025-04-09 21:23 | XMS_ITS | Clinical Summary ---
Author Organization [facility] Address [address] [place] [address] Care Team Providers Care Resident Service Coordinator Name Role Phone Provider, No Pcp Primary Care Provider Unavailab le Source Comments [facility],non-owned Affiliates and Associated Physician Practices is amultiple site organization consisting of ambulatory clinics and hospital sitesin [place], [place], [place] and [place]. This disclosure is being madepursuant to the Care Everywhere program and may not contain all information available regarding this patient. Last updated 18.[facility] Allergies No known active allergies Medications * [...] [facility] [address] [place] [address] Kalia Tang MD Refill Request 02/02/2025 9:54 AM CDT - 02/02/2025 11:59 PM CDT Hospital Encounter [facility] [address] [place] [phone] Elal Francisco DO Discharge Disposition: Home or Self Care 02/02/2025 8:49 AM CDT - 02/02/2025 9:53 AM CDT Hospital Encounter [facility] [address] [place] [phone] Ella Francisco DO Discharge Disposition: Home or Self Care 02/02/2025 Travel 01/29/2025 Orders Only [facility] [address] [place] [phone] Ariadna Olson RN 01/29/2025 Orders Only [facility] [address] [place] [phone] Ariadna Olson RN 01/24/2025 3:30 PM CDT Office Visit [facility] [address] [place] [phone] [place] Aguilera MD Moderate persistent asthma without complication (HCC) (Primary Dx); Lung nodule; Tobacco use disorder; Chronic cough; Dyspnea on exertion; Abnormal PFT 01/24/2025 Travel 01/09/2025 11:23 AM CDT - 01/09/2025 11:59 PM CDT Hospital Encounter [facility] SC[facility] [address] [place] [address] Rico Baugh MD Discharge Disposition: Home or Self Care 01/09/2025 Travel from Last 3 Months Social History Tobacco Use Types Packs/Day Years Used Date Smoking Tobacco: Never Assessed Comments Unknown Sex and Gender Information Value Date Recorded Sex Assigned at Not on file Legal Sex 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 - Diagnostic Occup Therapist. > Dictated by Pedro López M.D. - Diagnostic Occup Therapist > Dictated by Sharita Cruz Dr 02/02/2025 10:44 AM > Dictated by Occup Therapist I, Colleen Barbosa DO have personally reviewed [...] Dictated by Sharita Cruz M.D. - Diagnostic Occup Therapist. > Dictated by Pedro López M.D. - Diagnostic Occup Therapist > Dictated by Sharita Cruz Dr 02/02/2025 10:44 AM > Dictated by Occup Therapist I, Colleen Barbosa DO have personally reviewed and interpreted this examination/study. > Interpreting Provider: Colleen Barbosa DO on 02/02/2025 3:31 PM us Ella Francisco DO NM ORDERABLES Final Result * GLUCOSE SCREEN - POCT (IP) [facility] (02/02/2025 9:19 AM CDT) Glucose WB/POC 89 70 - 99 mg/dL [facility] POCT TESTING Blood BLOOD SPECIMEN / Unknown 02/02/2025 9:19 AM CDT us Ella J Nolan DO LAB - POINT OF CARE ORDERABLES F inal Result [facility] POCT TESTING [address] [place] [address], [facility] [phone] * CT Chest Wo Contrast (01/09/2025 11:53 [...] Dictated by Mahdi Hermilo Rodriguez Dr, MD (residential subcontractor). > Dictated by Mahdi Hermilo Rodriguez Dr 01/09/2025 12:46 PM > Dictated by Occup Therapist ITrey. Alix Downey MD have personally reviewed and interpreted this examination/study. > Interpreting Provider: Wilber Downey MD on 01/09/2025 10:10 PM Narrative 01/09/2025 10:10 PM CDT PROCEDURE: CT CHEST WO CONTRAST, DATE/TIME OF EXAM: 01/09/2025 11:53 AM, LOCATION [facility] INDICATION: R91.1: Lung nodule COMPARISON: CT [...] DATE/TIME OF EXAM: 01/09/2025 11:53AM, LOCATION [facility] INDICATION: R91.1: Lung nodule COMPARISON: CT [...] Dictated by Mahdi Hermilo Rodriguez Dr, MD (residential subcontractor). > Dictated by Mahdi Hermilo Rodriguez Dr 01/09/2025 12:46 PM > Dictated by Occup Therapist IWilber MD have personally reviewed and interpreted this examination/study. > Interpreting Provider: Wilber Downey MD on 01/09/2025 10:10 PM Rico Baugh MD CT ORDERABLES Final Result * (ABNORMAL) COMPREHENSIVE METABOLIC PANEL (02/28/2024 9:08 AM CDT) BUN 13 7 - 26 mg/dL 02/28/2024 9:58 AM [facility] Creatinine 0.67 0.56 - 0.96 mg/dL 02/28/2024 9:58 AM [facility] Sodium 141 136 - 145 mmol/L 02/28/2024 9:58 AM [facility] Potassium 3.8 3.5 - 4.5 mmol/L 02/28/2024 9:58 AM [facility] Chloride 113(H) 98 - 107 mmol/L 02/28/2024 9:58 AM [facility] CO2 25 22 - 29 mmol/L 02/28/2024 9:58 AM [facility] Glucose 87 70 - 115 mg/dL 02/28/2024 9:58 AM [facility] Calcium 9.0 8.4 - 10.2 mg/dL 02/28/2024 9:58 AM [facility] Protein Total 7.2 6.0 - 8.3 g/dL 02/28/2024 9:58 AM [facility] Albumin 4.0 3.4 - 5.0 g/dL 02/28/2024 9:58 AM [facility] Bilirubin Total 0.7 0.2 - 1.2 mg/dL 02/28/2024 9:58 AM [facility] Alkaline Phosphatase 53 40 - 150 U/L 02/28/2024 9:58 AM [facility] ALT 10 5 - 55 U/L 02/28/2024 9:58 AM [facility] AST 13 5 - 34 U/L 02/28/2024 9:58 AM [facility] Anion Gap 3(L) 6 - 16 02/28/2024 9:58 AM [facility] BUN/Creatinine Ratio 19 7 - 23 02/28/2024 9:58 AM [facility] Osmolality Calculated 291 275 - 295 mOsm/kg 02/28/2024 9:58 AM [facility] Albumin/Globulin Ratio 1.3 1.1 - 2.3 02/28/2024 9:58 AM [facility] eGFR by CKD-EPI >90 >=90 mL/min/1.7 3 m2 02/28/2024 9:58 AM [facility] Blood BLOOD SPECIMEN / Unknown Venipuncture / Unknown 02/28/2024 9:08 AM CDT 02/28/2024 9:16 AM [facility] us Ace Bae MD LAB - CHEMISTRY ORDERABLES Fi nal Result [facility] [address] [place] [address], [facility] [phone] from Last 3 Months or Most Recently Relevant to Health Maintenance Insurance MEDICAID - [place] [employer] MANAGED MEDICARE [employer] [employer] MEDICA[place] Advance Directives * FULL RESUSCITATION (Latest Code Status on File) Date Activated Date Inactivated Comments 07/30/2011 10:58 PM 09/08/2011 9:09 PM Care Teams Resident Service Coordinator Relationship Specialty Start Date End Date Provider, No Pcp PCP - General 02/28/24
[2025-04-09] MEDS: CYCLOBENZAPRINE HCL 10 MG TABLET PO (21:28)
== END 2025-04-09 21:31 | disposition home or self-care (01) ==
PROVIDERS: Emergency Provider Student in an Organized Health Care Education/Training Program; PCP Internal Medicine
DX: S29.012A Strain of muscle and tendon of back wall of thorax, initial encounter (principal); J44.9 Chronic obstructive pulmonary disease, unspecified; M16.9 Osteoarthritis of hip, unspecified; F17.290 Nicotine dependence, other tobacco product, uncomplicated; Z87.820 Personal history of traumatic brain injury; Z79.899 Other long term (current) drug therapy; Z79.3 Long term (current) use of hormonal contraceptives; V49.00XA Driver injured in collision with unspecified motor vehicles in nontraffic accident, initial encounter
CPT/HCPCS: 99283; A9270